=== PATIENT | male | born 1940 | race Two or more races ===

== ENCOUNTER 2021-05-29 11:26 | Inpatient (IN) | payer MEDICARE, MEDICAID ==
[~2021-05-29] VITALS: Ht 165.1 cm; Wt 78.6 kg
[2021-05-29] MEDS ORDERED: cloNIDine HCL 0.1 MG TAB PO ONE (11:45)
[2021-05-29 11:57] LABS: Basophils # (auto) 0 10 ^3/uL (0-0.2); Basophils % (auto) 0.8 % (0.0-2.0); Eosinophils # (auto) 0.1 10 ^3/uL (0-0.8); Eosinophils % (auto) 2.2 % (0.0-7.0); Hematocrit 39.2 % (41.0-53.0); Lymphocytes # (auto) 1.8 10 ^3/uL (0.4-5.4); Lymphocytes % (auto) 37.5 % (10.0-50.0); Mean Corpuscular Hemoglobin 27.6 pg (28.0-32.0); Mean Corpuscular Hgb Conc. 33.1 g/dL (32.0-36.0); Mean Corpuscular Volume 83.1 fL (80.0-100.0); Monocytes # (auto) 0.4 10 ^3/uL (0-1.3); Neutrophils # (auto) 2.5 10 ^3/uL (1.6-8.6); Neutrophils % (auto) 51.5 % (37.0-80.0); Red Blood Cells 4.72 10^6/uL (4.5-5.90); Red Cell Distribution Width 13.8 % (11.8-14.3); White Blood Cell 4.9 10^3/uL (4.4-10.8)
[2021-05-29 12:06] LABS: Albumin 3.6 g/dL (3.4-5.0); Anion Gap 7 (5-15); Blood Urea Nitrogen 19 mg/dL (7-18); Calcium 8.9 mg/dL (8.5-10.1); Carbon Dioxide 23 mmol/L (21-32); Chloride 107 mmol/L (98-107); Glucose 117 mg/dL (74-106); Lipase 137 U/L (73-393); Potassium 4.3 mmol/L (3.5-5.1); Sodium 137 mmol/L (136-145)
[2021-05-29 12:12] LABS: Alanine Aminotransferase 22 U/L (16-61); Alkaline Phosphatase 74 U/L (45-117); Aspartate Aminotransferase 13 U/L (15-37); BUN/Creatinine Ratio 16.4; Bilirubin, Total 0.5 mg/dL (0.2-1.0); GFR African American 78 mL/min; GFR Non-African American 65 mL/min; Total Protein 7.5 g/dL (6.4-8.2)
[2021-05-29] MEDS ORDERED: HYDROcodone-ACET 5/325MG TAB PO PRN (18:30)
[2021-05-29] MEDS ORDERED: ACETAMINOPHEN 500 MG TAB PO PRN (18:30)
[2021-05-29] MEDS ORDERED: MORPHINE SULFATE INJECTION 2 MG/ML SYRG IV PRN (18:30)
[2021-05-29] MEDS ORDERED: hydrALAZINE HCL 20 MG/ML VL IV PRN (18:30)
[2021-05-29] MEDS ORDERED: NITROGLYCERIN 0.4 MG SL TAB SL PRN (18:30)
[2021-05-29] MEDS: ATORVASTATIN 20 MG TAB PO SCH (21:02)
[2021-05-29] MEDS: METOPROLOL TARTRATE 25 MG TAB PO SCH (21:11)
[2021-05-29 21:41] LABS: CRP High Sensitivity 0.42 mg/dL (< 0.3)
[2021-05-30 05:55] LABS: Basophils # (auto) 0 10 ^3/uL (0-0.2); Basophils % (auto) 0.8 % (0.0-2.0); Eosinophils # (auto) 0.1 10 ^3/uL (0-0.8); Eosinophils % (auto) 2.3 % (0.0-7.0); Hematocrit 39.8 % (41.0-53.0); Hemoglobin 13.3 g/dL (13.5-17.5); Lymphocytes # (auto) 1.6 10 ^3/uL (0.4-5.4); Lymphocytes % (auto) 28.2 % (10.0-50.0); Mean Corpuscular Hemoglobin 27.8 pg (28.0-32.0); Mean Corpuscular Hgb Conc. 33.4 g/dL (32.0-36.0); Mean Corpuscular Volume 83.3 fL (80.0-100.0); Monocytes # (auto) 0.5 10 ^3/uL (0-1.3); Monocytes % (auto) 9.2 % (0.0-12.0); Neutrophils # (auto) 3.3 10 ^3/uL (1.6-8.6); Neutrophils % (auto) 59.5 % (37.0-80.0); Red Blood Cells 4.78 10^6/uL (4.5-5.90); Red Cell Distribution Width 14.1 % (11.8-14.3); White Blood Cell 5.6 10^3/uL (4.4-10.8)
[2021-05-30 06:18] LABS: Potassium 4.3 mmol/L (3.5-5.1)
[2021-05-30 06:27] LABS: INR 1.1 (0.9-1.15)
[2021-05-30] MEDS: ASPirin-EC 81 mg tab PO SCH (10:26)
[2021-05-30] MEDS: METOPROLOL TARTRATE 25 MG TAB PO SCH ×2 (10:27→21:47)
[2021-05-30] MEDS: LISINOPRIL 10 MG TAB PO SCH (10:27)
[2021-05-30 20:21] VITALS: BP 148/49
[2021-05-30] MEDS ORDERED: ATOR20TA PO (20:49)
[2021-05-30] MEDS ORDERED: ASPI-543 PO (20:49)
[2021-05-30] MEDS ORDERED: METO25TA93 PO (20:49)
[2021-05-30] MEDS ORDERED: OMEP20TA PO (20:49)
[2021-05-30] MEDS ORDERED: DOXA4TAB6 PO (20:49)
[2021-05-30] MEDS ORDERED: OXYB10TA14 PO (20:49)
[2021-05-30] MEDS ORDERED: METF-370 PO (20:49)
[2021-05-30] MEDS: ATORVASTATIN 20 MG TAB PO SCH (21:46)
[2021-05-30 22:00] VITALS: BP 154/73
[2021-05-31 05:00] VITALS: BP 123/65
[2021-05-31 09:00] VITALS: BP_SYST 133; BP_SYST 142; BP_SYST 144; BP_DIAS 66; BP_DIAS 71
[2021-05-31] MEDS: ASPirin-EC 81 mg tab PO SCH (09:31)
[2021-05-31] MEDS: LISINOPRIL 10 MG TAB PO SCH (09:32)
[2021-05-31] MEDS: METOPROLOL TARTRATE 25 MG TAB PO SCH ×2 (09:32→21:36)
[2021-05-31 09:56] LABS: Urine Bacteria NONE SEEN /hpf (None Seen); Urine Blood Negative /uL (Negative); Urine Mucus FEW (None Seen); Urine Specific Gravity 1.024 (1.001-1.035); Urine WBC 1 /hpf (0 - 3)
[2021-05-31 13:00] VITALS: BP 135/65
[2021-05-31 16:47] VITALS: BP 147/72
[2021-05-31] MEDS: ATORVASTATIN 20 MG TAB PO SCH (21:36)
[2021-05-31 22:00] VITALS: BP_SYST 135; BP_SYST 139; BP_SYST 150; BP_DIAS 77; BP_DIAS 78; BP_DIAS 83
[2021-06-01 05:00] VITALS: BP 129/57
[2021-06-01] MEDS ORDERED: ceFAZolin 1GM/50ML 100 ML IV ONE ×2 (07:10→10:47)
[2021-06-01] MEDS ORDERED: BUPIVACAINE W/ EPINEPH 0.25% INJ 50ML MDV ONE ×2 (07:21→11:12)
[2021-06-01 08:53] VITALS: BP 147/64
[2021-06-01] MEDS: ASPirin-EC 81 mg tab PO SCH (09:50)
[2021-06-01] MEDS: LISINOPRIL 10 MG TAB PO SCH (09:51)
[2021-06-01] MEDS: METOPROLOL TARTRATE 25 MG TAB PO SCH ×2 (09:51→21:01)
[2021-06-01] MEDS ORDERED: fentaNYL CITRATE 5 ML ONE (11:06)
[2021-06-01] MEDS ORDERED: MIDAZOLAM HCL 2MG/2ML 2ml VIAL (1mg/ml) ONE (11:06)
[2021-06-01] MEDS ORDERED: POVIDONE IODINE 10 % TOPICAL OINT 30GM TOP ONE (12:18)
[2021-06-01] MEDS ORDERED: ONDANSETRON HCL 4 MG/2 ML VIAL ONE (12:26)
[2021-06-01] MEDS ORDERED: SUGAMMADEX 200mg/2ml Vial (100MG/ML) IV ONE (12:42)
[2021-06-01] MEDS ORDERED: HYDROmorphone HCL 2 MG/ML VL IV PRN (13:15)
[2021-06-01] MEDS ORDERED: ONDANSETRON HCL 4 MG/2 ML VIAL IV PRN (13:15)
[2021-06-01 14:32] VITALS: BP 146/66
[2021-06-01 16:40] VITALS: BP 132/74
[2021-06-01] MEDS: MORPHINE SULFATE INJECTION 2 MG/ML SYRG IV PRN ×2 (17:01→22:46)
[2021-06-01] MEDS: ONDANSETRON HCL 4 MG/2 ML VIAL IV PRN ×2 (17:01→22:46)
[2021-06-01] MEDS: SOD CHL 0.45% WITH 20MEQ KCL 1,000 ML IV SCH ×2 (17:09→22:30)
[2021-06-01] MEDS ORDERED: ALUM & MAG HYDROX-SIMETH LIQ(MAALOX) 30 ML PO ONE (17:15)
[2021-06-01] MEDS: ATORVASTATIN 20 MG TAB PO SCH (21:01)
[2021-06-01 21:41] VITALS: BP 161/81
[2021-06-02] MEDS ORDERED: chlorproMAZINE HCL 25 MG TAB PO PRN (01:45)
[2021-06-02] MEDS: SOD CHL 0.45% WITH 20MEQ KCL 1,000 ML IV SCH (02:56)
[2021-06-02] MEDS ORDERED: ALUM & MAG HYDROX-SIMETH LIQ(MAALOX) 30 ML PO PRN (04:15)
[2021-06-02 05:30] VITALS: BP 134/66
[2021-06-02 05:58] LABS: Basophils # (auto) 0 10 ^3/uL (0-0.2); Basophils % (auto) 0.1 % (0.0-2.0); Eosinophils # (auto) 0 10 ^3/uL (0-0.8); Hematocrit 36.3 % (41.0-53.0); Hemoglobin 12.1 g/dL (13.5-17.5); Lymphocytes # (auto) 0.5 10 ^3/uL (0.4-5.4); Lymphocytes % (auto) 6.3 % (10.0-50.0); Mean Corpuscular Hemoglobin 27.7 pg (28.0-32.0); Mean Corpuscular Hgb Conc. 33.2 g/dL (32.0-36.0); Mean Corpuscular Volume 83.5 fL (80.0-100.0); Monocytes # (auto) 0.5 10 ^3/uL (0-1.3); Monocytes % (auto) 6.3 % (0.0-12.0); Neutrophils # (auto) 6.8 10 ^3/uL (1.6-8.6); Neutrophils % (auto) 87.3 % (37.0-80.0); Red Blood Cells 4.35 10^6/uL (4.5-5.90); White Blood Cell 7.8 10^3/uL (4.4-10.8)
[2021-06-02 08:30] VITALS: BP 130/74
[2021-06-02] MEDS ORDERED: cefTRIAXone 1GM/50ML D5W 50 ML IV SCH (09:00)
[2021-06-02] MEDS ORDERED: OXYBUTYNIN CHL 5 MG TAB PO SCH (10:00)
[2021-06-02] MEDS ORDERED: PANTOPRAZOLE 40 MG TAB PO SCH (10:00)
[2021-06-02] MEDS ORDERED: PANTOPRAZOLE 40 MG/10 ML VIAL INJ IV SCH (10:00)
[2021-06-02] MEDS: ASPirin-EC 81 mg tab PO SCH (10:23)
[2021-06-02] MEDS: METOPROLOL TARTRATE 25 MG TAB PO SCH (10:24)
[2021-06-02] MEDS: LISINOPRIL 10 MG TAB PO SCH (10:25)
[2021-06-02] MEDS ORDERED: BACLOFEN 10 MG TAB PO ONE (11:00)
[2021-06-02] MEDS ORDERED: ALUM & MAG HYDROX-SIMETH LIQ(MAALOX) 30 ML PO ONE (11:00)
[2021-06-02 13:30] VITALS: BP 136/84
[2021-06-02 14:23] VITALS: BP 136/84
[2021-06-02] MEDS ORDERED: PANT40T PO (17:40)
[2021-06-02] MEDS ORDERED: CEL100T PO (17:42)
[2021-06-02] MEDS ORDERED: DOXAZOSIN MESYL 2 MG TAB PO SCH (22:00)
== END 2021-06-02 15:50 | disposition home health service (06) | DRG 418 ==
LOC: EDBD 11:26 → ER 11:26 → TELE 18:19 → TELE-CENTR 05-30 19:01
PROVIDERS: ADMIT Nurse Practitioner Acute Care; ATTEND Internal Medicine
PROC: 0FT44ZZ Resection of Gallbladder, Percutaneous Endoscopic Approach (ICD-10-PCS; principal; 2021-06-01 11:10)
DX: K80.00 Calculus of gallbladder with acute cholecystitis without obstruction (principal); I24.9 Acute ischemic heart disease, unspecified; I16.0 Hypertensive urgency; R55 Syncope and collapse; I10 Essential (primary) hypertension; E66.9 Obesity, unspecified; Z68.28 Body mass index [BMI] 28.0-28.9, adult; E11.9 Type 2 diabetes mellitus without complications; E78.5 Hyperlipidemia, unspecified; Z20.822 Contact with and (suspected) exposure to COVID-19; E86.1 Hypovolemia; I25.10 Atherosclerotic heart disease of native coronary artery without angina pectoris; K21.9 Gastro-esophageal reflux disease without esophagitis; Z85.46 Personal history of malignant neoplasm of prostate; Z95.1 Presence of aortocoronary bypass graft
CPT/HCPCS: 36415; 70450; 70551; 71045; 74176; 76705; 78226; 80048; 80053; 80061; 81001; 82247; 83036; 83690; 84484; 85025; 85610; 85730; 86141; 86850; 86900; 86901; 87426; 93306; 93886; G0378; J0690; J0696; J2250; J2405; Q0161

== ENCOUNTER 2023-06-05 08:13 | Inpatient (IN) | payer MEDICARE, MEDICAID ==
[~2023-06-05] VITALS: Ht 154.9 cm; Wt 76.0 kg
[~2023-06-05 08:13] MED LIST: ASPI-543 PO; ATOR20TA PO; CEL100T PO; DOXA4TAB83 PO; METF-370 PO; METO25TA93 PO; OXYB10TA14 PO; PANT40T PO
[2023-06-05 08:35] LABS: Basophils # (auto) 0 10 ^3/uL (0-0.2); Basophils % (auto) 0.7 % (0.0-2.0); Eosinophils # (auto) 0.1 10 ^3/uL (0-0.8); Eosinophils % (auto) 1.4 % (0.0-7.0); Hematocrit 41.6 % (41.0-53.0); Hemoglobin 14.2 g/dL (13.5-17.5); Lymphocytes % (auto) 33.7 % (10.0-50.0); Mean Corpuscular Hemoglobin 29.7 pg (28.0-32.0); Mean Corpuscular Hgb Conc. 34.3 g/dL (32.0-36.0); Mean Corpuscular Volume 86.6 fL (80.0-100.0); Monocytes # (auto) 0.4 10 ^3/uL (0-1.3); Monocytes % (auto) 6.5 % (0.0-12.0); Neutrophils # (auto) 3.4 10 ^3/uL (1.6-8.6); Neutrophils % (auto) 57.7 % (37.0-80.0); Nucleated Red Blood Cells % 0.1 %; Red Cell Distribution Width 13.7 % (11.8-14.3)
[2023-06-05 08:40] VITALS: PULSE 79; RESP 18; O2SAT 97
[2023-06-05] MEDS ORDERED: ASPirin-EC 325mg tab PO ONE (08:45)
[2023-06-05] MEDS ORDERED: NITROGLYCERIN 2% OINT 1GM PKG TD ONE (08:45)
[2023-06-05 08:47] LABS: INR 1.1 (0.9-1.15); Partial Thromboplastin Time 31.3 SEC (24.5-34.5); Prothrombin Time 11.5 sec (9.3-11.8)
[2023-06-05] MEDS ORDERED: METOPROLOL TARTRATE 50 MG TAB PO ONE (09:00)
[2023-06-05 09:07] LABS: Alanine Aminotransferase 21 U/L (7-40); Albumin 4.8 g/dL (3.2-4.8); Alkaline Phosphatase 86 U/L (46-116); Anion Gap 9 (5-15); Aspartate Aminotransferase 16 U/L (13-40); BUN/Creatinine Ratio 11.8 (10.0-20.0); Bilirubin, Total 0.9 mg/dL (0.2-1.0); Blood Urea Nitrogen 13 mg/dL (9-23); Calcium 9.6 mg/dL (8.5-10.1); Carbon Dioxide 26 mmol/L (20-30); Chloride 106 mmol/L (98-107); Glucose 134 mg/dL (74-106); Potassium 3.9 mmol/L (3.5-5.1); Sodium 141 mmol/L (136-145); Total Protein 7.5 g/dL (5.7-8.2)
[2023-06-05 09:51] LABS: Urine Bacteria NONE SEEN /hpf (None Seen); Urine Blood Negative /uL (Negative); Urine Clarity Clear (Clear); Urine Color Colorless (Yellow); Urine Protein, UAD 1+ (Negative); Urine Urobilinogen Normal (Negative); Urine WBC <1 /hpf (0 - 3)
[2023-06-05 11:02] LABS: Lipase 44 U/L (12-53); Magnesium 1.8 mg/dL (1.6-2.6)
[2023-06-05] MEDS ORDERED: LISINOPRIL 5 MG TAB PO SCH (11:15)
[2023-06-05] MEDS ORDERED: MORPHINE SULFATE INJ 2 MG/ml SYRG IV PRN ×2 (11:15)
[2023-06-05] MEDS ORDERED: DOCUSATE SOD 100 MG CAP PO PRN (11:15)
[2023-06-05] MEDS ORDERED: NITROGLYCERIN 0.4 MG SL TAB SL PRN (11:15)
[2023-06-05 12:02] LABS: Amphetamine Screen, Urine Neg (NEGATIVE)
[2023-06-05 12:03] LABS: Barbiturate Scree,Urine Neg (NEGATIVE); Benzodiazephine Screen, Urine Neg (NEGATIVE); Cannabinoid Screen, Urine Neg (NEGATIVE); Cocaine Screen, Urine Neg (NEGATIVE); Opiate Scree,Urine Neg (NEGATIVE); Phencyclidine Screen, Urine Neg (NEGATIVE)
[2023-06-05 12:09] LABS: Triglycerides 108 mg/dL (< 150)
[2023-06-05 12:10] LABS: LDL Cholesterol 53 mg/dL (< 100)
[2023-06-05 12:11] LABS: Cholesterol 105 mg/dL (< 200); HDL Cholesterol 33 mg/dL (40-59)
[2023-06-05] MEDS ORDERED: ENALAPRIL MALEATE 2.5 MG TAB PO ONE (13:15)
[2023-06-05] MEDS ORDERED: DEXTROSE (50%) 50ML SYRG IV PRN (16:15)
[2023-06-05] MEDS: PANTOPRAZOLE 40 MG TAB PO SCH (16:44)
[2023-06-05] MEDS: FERROUS SULFATE 325mg EC TAB PO SCH (16:44)
[2023-06-05] MEDS: SODIUM CHLOR 0.9% PF (SALINE LOCK) 10ML VIAL/SYR IV SCH ×2 (16:44→20:42)
[2023-06-05] MEDS: OXYBUTYNIN CHL 5 MG TAB PO SCH (16:44)
[2023-06-05] MEDS: DOXAZOSIN MESYL 2 MG TAB PO SCH (17:07)
[2023-06-05] MEDS: ACCU-CHEK COMFORT CURVE STRIP VI SCH ×2 (18:00→22:13)
[2023-06-05] MEDS: InsuLIN REG 1unit/0.01ml Soln (100units/ml) SC SCH ×2 (18:00→21:20)
[2023-06-05 18:36] VITALS: BP 156/72; PULSE 60; PULSE 74; RESP 16; O2SAT 96
[2023-06-05] MEDS ORDERED: ATOR20TA50 PO (19:36)
[2023-06-05] MEDS ORDERED: FLUT50SP NAS (19:36)
[2023-06-05] MEDS ORDERED: OXYB5TAB10 PO (19:36)
[2023-06-05] MEDS ORDERED: OMEP1CAP70 PO (19:36)
[2023-06-05] MEDS ORDERED: METO-289 PO (19:47)
[2023-06-05] MEDS ORDERED: GLIP2.5T9 PO (19:51)
[2023-06-05 20:00] VITALS: PULSE 1; PULSE 57; RESP 16; O2SAT 57
[2023-06-05 21:51] VITALS: BP 148/63; PULSE 57; RESP 16; TEMP 98; O2SAT 97
[2023-06-05] MEDS ORDERED: ATORVASTATIN 20 MG TAB PO SCH (22:00)
[2023-06-05] MEDS: ENALAPRIL MALEATE 2.5 MG TAB PO SCH (22:04)
[2023-06-05] MEDS: ENOXAPARIN SOD 80 MG/0.8ML SYRINGE SC SCH (22:13)
[2023-06-06] MEDS ORDERED: NITR0.4S29 SL (03:21)
[2023-06-06] MEDS ORDERED: CALC500C3 PO (03:22)
[2023-06-06] MEDS ORDERED: FERR325T24 PO (03:33)
[2023-06-06 04:58] VITALS: BP 130/65; PULSE 59; RESP 16; TEMP 98; O2SAT 97
[2023-06-06] MEDS: ACCU-CHEK COMFORT CURVE STRIP VI SCH ×2 (05:33→12:05)
[2023-06-06] MEDS: SODIUM CHLOR 0.9% PF (SALINE LOCK) 10ML VIAL/SYR IV SCH ×2 (05:33→14:09)
[2023-06-06] MEDS: InsuLIN REG 1unit/0.01ml Soln (100units/ml) SC SCH ×2 (05:33→12:03)
[2023-06-06 05:56] LABS: Basophils # (auto) 0 10 ^3/uL (0-0.2); Basophils % (auto) 0.7 % (0.0-2.0); Eosinophils # (auto) 0.1 10 ^3/uL (0-0.8); Eosinophils % (auto) 2.3 % (0.0-7.0); Hematocrit 39.3 % (41.0-53.0); Hemoglobin 13.3 g/dL (13.5-17.5); Lymphocytes # (auto) 1.6 10 ^3/uL (0.4-5.4); Lymphocytes % (auto) 30.7 % (10.0-50.0); Mean Corpuscular Hemoglobin 29.8 pg (28.0-32.0); Mean Corpuscular Hgb Conc. 33.7 g/dL (32.0-36.0); Mean Corpuscular Volume 88.4 fL (80.0-100.0); Monocytes # (auto) 0.4 10 ^3/uL (0-1.3); Monocytes % (auto) 8.5 % (0.0-12.0); Neutrophils % (auto) 57.8 % (37.0-80.0); Red Blood Cells 4.45 10^6/uL (4.5-5.90); Red Cell Distribution Width 13.6 % (11.8-14.3); White Blood Cell 5.2 10^3/uL (4.4-10.8)
[2023-06-06 06:07] LABS: Alanine Aminotransferase 14 U/L (7-40); Alkaline Phosphatase 74 U/L (46-116); Anion Gap 8 (5-15); Aspartate Aminotransferase 15 U/L (13-40); Blood Urea Nitrogen 11 mg/dL (9-23); Calcium 9.1 mg/dL (8.5-10.1); Carbon Dioxide 25 mmol/L (20-30); Chloride 108 mmol/L (98-107); Glucose 92 mg/dL (74-106); LDL Cholesterol 51 mg/dL (< 100); Potassium 3.9 mmol/L (3.5-5.1); Sodium 141 mmol/L (136-145); Triglycerides 126 mg/dL (< 150)
[2023-06-06 06:08] LABS: Albumin 4.1 g/dL (3.2-4.8); Cholesterol 100 mg/dL (< 200); HDL Cholesterol 28 mg/dL (40-59); Total Protein 6.6 g/dL (5.7-8.2)
[2023-06-06 08:00] VITALS: PULSE 70; PULSE 72; RESP 17; O2SAT 97
[2023-06-06 08:38] VITALS: BP 134/62; PULSE 72; RESP 17; TEMP 98.3; O2SAT 97
[2023-06-06] MEDS: ENALAPRIL MALEATE 2.5 MG TAB PO SCH (10:51)
[2023-06-06] MEDS: PANTOPRAZOLE 40 MG TAB PO SCH (10:51)
[2023-06-06] MEDS: ENOXAPARIN SOD 80 MG/0.8ML SYRINGE SC SCH (10:53)
[2023-06-06] MEDS: DOXAZOSIN MESYL 2 MG TAB PO SCH (10:53)
[2023-06-06] MEDS: OXYBUTYNIN CHL 5 MG TAB PO SCH (10:53)
[2023-06-06] MEDS: FERROUS SULFATE 325mg EC TAB PO SCH (10:53)
[2023-06-06] MEDS ORDERED: ERGOCALCIFEROL 50,000 UNIT(1.25MG) CAP PO SCH (11:00)
[2023-06-06] MEDS ORDERED: LISI20TA56 PO (11:21)
[2023-06-06] MEDS ORDERED: METO25TA36 PO (11:21)
[2023-06-06 12:44] VITALS: BP 144/66; PULSE 71; RESP 17; TEMP 99.2; O2SAT 99
[2023-06-06 16:05] VITALS: BP 134/61; PULSE 89; TEMP 37.3; O2SAT 97
[2023-06-06] MEDS ORDERED: METOPROLOL TARTRATE 25 MG TAB PO SCH (22:00)
== END 2023-06-06 17:26 | disposition home or self-care (01) | DRG 303 ==
LOC: ER 08:13 → TELE 11:18 → TELE-WESTW 17:33
PROVIDERS: ADMIT Internal Medicine Geriatric Medicine; ATTEND Internal Medicine Geriatric Medicine
DX: I25.119 Atherosclerotic heart disease of native coronary artery with unspecified angina pectoris (principal); I16.0 Hypertensive urgency; I44.0 Atrioventricular block, first degree; I10 Essential (primary) hypertension; E11.9 Type 2 diabetes mellitus without complications; E78.5 Hyperlipidemia, unspecified; R00.2 Palpitations; Z95.1 Presence of aortocoronary bypass graft
CPT/HCPCS: 36415; 71045; 74176; 80053; 80061; 80307; 81001; 82248; 82306; 82607; 82962; 83036; 83690; 83735; 84443; 84484; 85025; 85610; 85730; 93005; 93306; G0378; J1815

== ENCOUNTER 2025-06-02 02:30 | Inpatient (IN) | payer MEDICARE, MEDICAID ==
[2025-06-02] VITALS (12 sets, daily range): BP systolic 132–176; BP diastolic 64–89; PULSE 60–94; RESP 12–20; TEMP 96.4–99; O2SAT 95–99
[~2025-06-02] VITALS: Ht 154.9 cm; Wt 74.7 kg
[~2025-06-02 02:30] MED LIST changes: +CALC500C3 PO; -CEL100T PO; +FERR325T24 PO; +FLUT50SP NAS; +GLIP2.5T9 PO; +LISI20TA56 PO; -METF-370 PO; +METO25TA36 PO; -METO25TA93 PO; +NITR0.4S29 SL; +OMEP1CAP70 PO; -OXYB10TA14 PO; +OXYB5TAB14 PO; -PANT40T PO
--- NOTE | 2025-06-02 02:46 | ED.PDOC ---
HPI Comments 84-year-old male came to ER via EMS for chest pains. Patient has an extensive cardiac history, hypertension, diabetes, TN, status post CABG and pacemaker insertion. 3 hours prior to arrival, he developed sudden onset midsternal chest pains, dull, pressure, constant radiating to both arms and neck area, 8/10 intensity. 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 Allergies: Coded Allergies: NO KNOWN ALLERGIES (Unverified , 05/29/21) Home Meds Active Scripts Lisinopril (Lisinopril) 20 Mg Tab, 1 TAB PO DAILY, #30 TAB 5 Refills Prov:MARIE JULES MD 06/06/23 Metoprolol Succinate (Toprol Xl) 25 Mg Tab, 1 TAB PO DAILY, #30 TAB 5 Refills Prov:MARIE JULES MD 06/06/23 Reported Medications Ferrous Sulfate (Ferrous Sulfate) 325 Mg Tab, 325 MG PO BIDWM PRN for iron defin for 30 Days, MG 06/06/23 Calcium Carbonate (Tums) 500 Mg Chw, 500 MG PO PRN for FOR STOMACH DISTRESS, TAB.CHEW 06/06/23 Nitroglycerin (NTROSTAT SUBLINGUAL) 0.4 Mg Sl, 0.4 MG SL PRN, TAB *MAY REPEAT EVERY 5 MINUTES X 3 TOTAL IF NO RELIEF, INITIATE ANALGESIC THERAPY. NOTIFY PHYSICIAN *Do not crush. 06/06/23 Glipizide (Glipizide Er) 2.5 Mg Tab, 1 TAB PO DAILY 06/05/23 Oxybutynin Chloride (Oxybutynin Chloride) 5 Mg Tab, 1 TAB PO DAILY 06/05/23 Omeprazole (Omeprazole Dr) 20 Mg Cap, 1 CAP PO DAILY 06/05/23 Fluticasone Propionate (Nasal) (Fluticasone Propionate) 50 Mcg/Act Spr, 1 SPRAY JULIA DAILY 06/05/23 Doxazosin Mesylate (Doxazosin Mesylate) 4 Mg Tab, 4 MG PO HS for 30 Days, MG 05/30/21 Aspirin (Aspir-Low) 81 Mg Tab, 81 MG PO DAILY for 30 Days, MG 05/30/21 Atorvastatin Calcium (Lipitor) 20 Mg Tab, 1 TAB PO DAILY, #90 TAB 1 Refill 05/30/21 Information Source: Patient Mode of Arrival: Wheelchair Severity: Moderate Timing: Hours Duration: Since onset Prehospital treatment: ASA, NTG Location: Substernal Radiation: Neck, Arm (R), Arm (L) Quality: Pressure Onset: At Rest, With Light Exertion Past Medical History PAST MEDICAL HISTORY: Asthma, CAD, DM, High Lipids, HTN, TN, Denies Surgical History: CABG, Pacemaker Family History Family History: Reviewed,noncontributory to illness Social History Smoker: Non-Smoker Alcohol: Denies ETOH Use Drugs: Denies Drug Use Lives In: Home Constitutional: denies: chills, diaphoresis, fatigue, fever, malaise, sweats, weakness, others EENTM: denies: blurred vision, double vision, ear bleeding, ear discharge, ear drainage, ear pain, ear ringing, eye pain, eye redness, hearing loss, mouth pain, mouth swelling, nasal discharge, nose bleeding, nose congestion, nose pain, photophobia, tearing, throat pain, throat swelling, voice changes, others Respiratory: denies: cough, hemoptysis, orthopnea, SOB at rest, shortness of breath, SOB with excertion, stridor, wheezing, others Cardiovascular: reports: chest pain; denies: dizzy spells, diaphoresis, Dyspnea on exertion, edema, irregular heart beat, left arm pain, lightheadedness, palpitations, PND, syncope, others Gastrointestinal: denies: abdomen distended, abdominal pain, blood streaked bowels, constipated, diarrhea, dysphagia, difficulty swallowing, hematemesis, melena, nausea, poor appetite, poor fluid intake, rectal bleeding, rectal pain, vomiting, others Genitourinary: denies: burning, dysuria, flank pain, frequency, hematuria, incontinence, penile discharge, penile sore, pain, testicle pain, testicle swelling, urgency, others Neurological: denies: dizziness, fainting, headache, left sided numbness, left sided weakness, numbness, paresthesia, pre-existing deficit, right sided numbness, right sided weakness, seizure, speech problems, tingling, tremors, weakness, others Musculoskeletal: denies: back pain, gout, joint pain, joint swelling, muscle pain, muscle stiffness, neck pain, others Integumetry: denies: bruises, change in color, change in hair/nails, dryness, laceration, lesions, lumps, rash, wounds, others Allergic/Immunocompromised: denies: Difficulty Healing, Frequent Infections, Hives, Itching, others Hematologic/Lymphatic: denies: anemia, blood clots, easy bleeding, easy bruising, swollen glands, others Endocrine: denies: excessive hunger, excessive sweating, excessive thirst, excessive urination, flushing, intolerance to cold, intolerance to heat, unexplained weight gain, unexplained weight loss, others Psychiatric: denies: anxiety, bipolar disorder, depression, hopeless, panic disorder, schizophrenia, sleepless, suicidal, others Physical Exam General Appearance: No Apparent Distress, Normal HEENT: Normal ENT Inspection, Pharynx Normal, TMs Normal Neck: Full Range of Motion, Non-Tender, Normal, Normal Inspection Respiratory: Chest Non-Tender, Lungs Clear, No Accessory Muscle Use, No Respiratory Distress, Normal Breath Sounds Cardiovascular: No Edema, No JVD, No Murmur, No Gallop, Normal Peripheral Pulses, Regular Rate/Rhythm Breast Exam: Deferred Gastrointestinal: No Organomegaly, Non Tender, No Pulsatile Mass, Normal Bowel Sounds, Soft Genitalia: Deferred Pelvic: Deferred Rectal: Deferred Extremities: No calf tenderness, Normal capillary refill, Normal inspection, Normal range of motion, Non-tender, No pedal edema Musculoskeletal : Apperance: Normal 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 Was a procedure done?: No CP Differential Dx Differential Diagnosis: Angina, Anxiety / Panic Attack Differential Diagnosis: Angina, Chest Wall Pain, Costochondritis, Esophageal reflux/spasm, Gastritis, Myocardial Infarction, Pneumonia X-Ray, Labs, Meds, VS Vital Signs Date Time Temp Pulse Resp B/P (MAP) Pulse Ox O2 Delivery O2 Flow Rate FiO2 06/02/25 03:35 82 06/02/25 03:21 88 18 97 Room Air* 0 21 06/02/25 03:21 98.1 78 18 152/76 (101) 97 98.1 06/02/25 02:46 97 06/02/25 02:44 97.6 101 17 161/96 96 97.6 06/02/25 02:32 97 Lab Test 06/02/25 03:28 06/02/25 02:40 Range/Units Troponin I High Sensitivity 26 18 </=54 ng/L White Blood Count 5.5 4.4-10.8 10^3/uL Red Blood Count 4.54 4.5-5.90 10^6/uL Hemoglobin 13.1 L 13.5-17.5 g/dL Hematocrit 37.6 L 41.0-53.0 % Mean Corpuscular Volume 83.0 80.0-100.0 fL Mean Corpuscular Hemoglobin 28.8 28.0-32.0 pg Mean Corpuscular Hemoglobin Concent 34.7 32.0-36.0 g/dL Red Cell Distribution Width 15.8 H 11.8-14.3 % Platelet Count 187 140-450 10^3/uL Mean Platelet Volume 7.1 6.9-10.8 fL Neutrophils (%) (Auto) 56.1 37.0-80.0 % Lymphocytes (%) (Auto) 34.1 10.0-50.0 % Monocytes (%) (Auto) 7.3 0.0-12.0 % Eosinophils (%) (Auto) 1.8 0.0-7.0 % Basophils (%) (Auto) 0.7 0.0-2.0 % Neutrophils # (Auto) 3.1 1.6-8.6 10 ^3/uL Lymphocytes # (Auto) 1.9 0.4-5.4 10 ^3/uL Monocytes # (Auto) 0.4 0-1.3 10 ^3/uL Eosinophils # (Auto) 0.1 0-0.8 10 ^3/uL Basophils # (Auto) 0 0-0.2 10 ^3/uL Nucleated Red Blood Cells 0.2 % Prothrombin Time 10.9 9.3-11.8 sec Prothrombin Time INR 1.03 0.9-1.15 Activated Partial Thromboplast Time 28.9 24.5-34.5 SEC Sodium Level 140 136-145 mmol/L Potassium Level 4.6 3.5-5.1 mmol/L Chloride Level 105 98-107 mmol/L Carbon Dioxide Level 23 20-31 mmol/L Anion Gap 12 5-15 Blood Urea Nitrogen 17 9-23 mg/dL Creatinine 1.08 0.700-1.30 mg/dL Glomerular Filtration Rate Calc 68 >90 mL/min BUN/Creatinine Ratio 15.7 10.0-20.0 Serum Glucose 130 H 74-106 mg/dL Calcium Level 9.2 8.7-10.4 mg/dL Magnesium Level 1.8 1.6-2.6 mg/dL Total Bilirubin 0.4 0.2-1.0 mg/dL Aspartate Amino Transferase (AST) 21 13-40 U/L Alanine Aminotransferase (ALT) 20 7-40 U/L Alkaline Phosphatase 103 46-116 U/L B-Type Natriuretic Peptide 193.82 0-100 pg/mL Total Protein 7.4 5.7-8.2 g/dL Albumin 4.4 3.2-4.8 g/dL Time of 1ST Reevaluation: 02:39 Reevaluation 1ST: Unchanged Patient Education/Counseling: Diagnosis, Treatment Family Education/Counseling: No Family Present SEPSIS Sepsis Screen Physician Orders Electrocardigram (06/02/25 05:36) Chest Portable (06/02/25 02:38) Troponin-I Hs (06/02/25 05:38) Vital Signs Date Time Temp Pulse Resp B/P (MAP) Pulse Ox O2 Delivery O2 Flow Rate FiO2 06/02/25 03:35 82 06/02/25 03:21 88 18 97 Room Air* 0 21 06/02/25 03:21 98.1 78 18 152/76 (101) 97 98.1 06/02/25 02:46 97 06/02/25 02:44 97.6 101 17 161/96 96 97.6 06/02/25 02:32 97 Laboratory Tests Test 06/02/25 02:40 White Blood Count 5.5 10^3/uL (4.4-10.8) Departure 1 Departure Time of Disposition: 05:35 Impression: Primary Impression: Acute chest pain Additional Impression: Acute coronary syndrome Disposition: ADMITTED INPATIENT Admit to: Tele Condition: Guarded Discharged With: Self Comments 84-year-old male with extensive cardiac history now with chest pain. Patient initial troponin is normal. Patient was given aspirin. Patient will need to be admitted for further cardiac workup and supportive care. Critical Care Note Critical Care Time?: Yes (35 min-critical care time only) Critical care comment: Chest pains Total critical care time: Approximately 36 minutes Due to a high probability of clinically significant, life threatening deterioration, the patient required my highest level of preparedness to intervene emergently and I personally spent this critical care time directly and personally managing the patient. This critical care time included obtaining a history; examining the patient; pulse oximetry; ordering and review of studies; arranging urgent treatment with development of a management plan; evaluation of patient's response to treatment; frequent reassessment; and, discussions with other providers. This critical care time was performed to assess and manage the high probability of imminent, life-threatening deterioration that could result in multi-organ failure. It was exclusive of separately billable procedures and treating other patients. Stability Stability form required: No Heart Score Heart Score: Heart Score Response (Comments) Value History Moderate Suspicious 1 EKG Repolarization Disturb 1 Age >65 2 Risk Factors >3 or Hx ASHD 2 Troponin Normal limit 0 Total 6 I personally scribed for BRENNAN DIAZ MD ([email or web address]) on 06/02/25 at 02:46. Electronically submitted by Delmar Viramontes ([email or web address]). I personally scribed for BRENNAN DIAZ MD ([email or web address]) on 06/02/25 at 02:49. Electronically submitted by Delmar Viramontes ([email or web address]). BRENNAN DIAZ MD Jun 02, 2025 02:46
[2025-06-02 02:54] LABS: Hematocrit 37.6 % (41.0-53.0); Hemoglobin 13.1 g/dL (13.5-17.5); Mean Corpuscular Hemoglobin 28.8 pg (28.0-32.0); Mean Corpuscular Volume 83.0 fL (80.0-100.0); Nucleated Red Blood Cells % 0.2 %
--- NOTE | 2025-06-02 03:11 | ECG ---
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
--- NOTE | 2025-06-02 03:13 | DVH ---
CHEST RADIOGRAPH Indication: chest pain Technique: Single frontal view of the chest was obtained COMPARISON: XY CHEST PORTABLE on DOS: 06/05/23, CHEST PORTABLE on DOS: 05/30/21 FINDINGS: Lines and Tubes: None. Left anterior chest wall dual lead cardiac pacing device. Lungs: Clear Pleura: No effusion. No pneumothorax. Cardiomediastinal contours: Cardiomegaly status post median sternotomy. Bones: Unremarkable IMPRESSION: 1. Cardiomegaly.
[2025-06-02 03:36] LABS: Alanine Aminotransferase 20 U/L (7-40); Alkaline Phosphatase 103 U/L (46-116); Anion Gap 12 (5-15); BUN/Creatinine Ratio 15.7 (10.0-20.0); Blood Urea Nitrogen 17 mg/dL (9-23); Calcium 9.2 mg/dL (8.7-10.4); Carbon Dioxide 23 mmol/L (20-31); Chloride 105 mmol/L (98-107); Magnesium 1.8 mg/dL (1.6-2.6); Potassium 4.6 mmol/L (3.5-5.1); Sodium 140 mmol/L (136-145); Total Protein 7.4 g/dL (5.7-8.2)
[2025-06-02 03:37] LABS: Albumin 4.4 g/dL (3.2-4.8); Bilirubin, Total 0.4 mg/dL (0.2-1.0); INR 1.03 (0.9-1.15); Partial Thromboplastin Time 28.9 SEC (24.5-34.5); Prothrombin Time 10.9 sec (9.3-11.8)
--- NOTE | 2025-06-02 03:38 | ECG ---
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
[2025-06-02 03:51] LABS: Glucose 130 mg/dL (74-106)
--- NOTE | 2025-06-02 05:36 | ECG ---
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
[2025-06-02] MEDS: ASPirin-EC 325mg tab PO ONE (06:49)
[2025-06-02] MEDS ORDERED: ISOS1TAB28 PO (07:44)
[2025-06-02] MEDS ORDERED: ACETAMINOPHEN 325 MG TAB PO PRN (07:45)
[2025-06-02] MEDS ORDERED: MORPHINE SULFATE INJ 2 MG/ml SYRG IV PRN (07:45)
[2025-06-02] MEDS ORDERED: DEXTROSE (50%) 50ML SYRG IV PRN (07:45)
[2025-06-02] MEDS ORDERED: NITROGLYCERIN 0.4 MG SL TAB SL PRN ×2 (07:45)
[2025-06-02] MEDS ORDERED: ALBUTEROL SULF 2.5 MG/0.5ML(0.5%) NEB SOLN NEB PRN ×2 (07:45→11:15)
[2025-06-02] MEDS ORDERED: IPRATROPIUM BROM 0.5 MG/2.5ML INH SOL NEB PRN (07:45)
[2025-06-02] MEDS ORDERED: MORPHINE SULFATE 4 MG/ML SYR/VIAL IV PRN (07:45)
[2025-06-02] MEDS ORDERED: PATIENTS OWN MEDICATION (Ferrous Sulfate 325 MG) PO PRN (07:45)
[2025-06-02] MEDS ORDERED: ONDANSETRON HCL 4 MG/2 ML VIAL IV PRN (07:45)
--- NOTE | 2025-06-02 07:45 | DVHHP2 ---
History of Present Illness Reason for Visit: Chest pain History of Present Illness David Trujillo is an 84-year-old male with past medical history of hypertension, diabetes, KS, CABG, pacemaker, tobacco use, urinary incontinence, cholecystectomy, seasonal allergies, gastritis, asthma, CAD, and hyperlipidemia who presents to the ED with chest pain that started 3 hours prior to arrival. Patient reports that the pain was 8/10 midsternal, dull pressure-like and constant radiating to both arms and neck. Patient reports that he self- medicated with aspirin nitroglycerin however chest pain was still present. Upon examination patient states that his pain is currently at 0. He does however state that if he does move or showers the pain is worse. He reports that lying still makes the pain better. Patient also reports that he had a pacemaker placed 6 weeks ago over at [facility] by Dr. Queen. Patient denies any recent trauma or injury, recent sick contacts, recent ingestion of spoiled food, recent travels, shortness of breath, fever, chills, lightheadedness, weakness, dizziness, abdominal pain, nausea, vomiting, diarrhea, or urinary symptoms. Patient also reports that he ambulates without any DMEs. Cardiovascular: CAD, HTN, KS, hyperipidemia Pulmonary: Asthma GI: Gastritis Endocrine: Diabetes Past Medical History Urinary incontinence Seasonal allergies Past Surgical History: Cholecystectomy, CABG, Other (Pacemaker) Smoke: Quit ALCOHOL: none Drugs: None Lives: with Family Domestic Violence: Neg Review of Systems Cardiovascular: Chest Pain Allergies: Coded Allergies: NO KNOWN ALLERGIES (Unverified , 05/29/21) Exam Vital Signs Vital Signs Date Time Temp Pulse Resp B/P (MAP) Pulse Ox O2 Delivery O2 Flow Rate FiO2 06/02/25 06:48 79 06/02/25 05:38 98.1 20 150/87 (108) 97 98.1 06/02/25 03:21 Room Air* 0 21 General Appearance: Alert, Oriented X3, Cooperative, No acute distress HEENT: Atraumatic, PERRLA, EOMI, Mucous membr. moist/pink Respiratory: Clear to auscultation, Normal air movement Cardiovascular: Normal S1, Normal S2, No murmurs Abdominal: Normal bowel sounds, Soft Extremities: Normal pulses Skin: No significant lesion Neuro: Normal speech, Strength at 5/5 X4 ext, Normal tone, Sensation intact Psych/Mental Status: Mental status NL, Mood NL Labs/Xrays Labs Test 06/02/25 05:38 06/02/25 02:40 Range/Units Troponin I High Sensitivity 177 *H </=54 ng/L White Blood Count 5.5 4.4-10.8 10^3/uL Red Blood Count 4.54 4.5-5.90 10^6/uL Hemoglobin 13.1 L 13.5-17.5 g/dL Hematocrit 37.6 L 41.0-53.0 % Mean Corpuscular Volume 83.0 80.0-100.0 fL Mean Corpuscular Hemoglobin 28.8 28.0-32.0 pg Mean Corpuscular Hemoglobin Concent 34.7 32.0-36.0 g/dL Red Cell Distribution Width 15.8 H 11.8-14.3 % Platelet Count 187 140-450 10^3/uL Mean Platelet Volume 7.1 6.9-10.8 fL Neutrophils (%) (Auto) 56.1 37.0-80.0 % Lymphocytes (%) (Auto) 34.1 10.0-50.0 % Monocytes (%) (Auto) 7.3 0.0-12.0 % Eosinophils (%) (Auto) 1.8 0.0-7.0 % Basophils (%) (Auto) 0.7 0.0-2.0 % Neutrophils # (Auto) 3.1 1.6-8.6 10 ^3/uL Lymphocytes # (Auto) 1.9 0.4-5.4 10 ^3/uL Monocytes # (Auto) 0.4 0-1.3 10 ^3/uL Eosinophils # (Auto) 0.1 0-0.8 10 ^3/uL Basophils # (Auto) 0 0-0.2 10 ^3/uL Nucleated Red Blood Cells 0.2 % Prothrombin Time 10.9 9.3-11.8 sec Prothrombin Time INR 1.03 0.9-1.15 Activated Partial Thromboplast Time 28.9 24.5-34.5 SEC Sodium Level 140 136-145 mmol/L Potassium Level 4.6 3.5-5.1 mmol/L Chloride Level 105 98-107 mmol/L Carbon Dioxide Level 23 20-31 mmol/L Anion Gap 12 5-15 Blood Urea Nitrogen 17 9-23 mg/dL Creatinine 1.08 0.700-1.30 mg/dL Glomerular Filtration Rate Calc 68 >90 mL/min BUN/Creatinine Ratio 15.7 10.0-20.0 Serum Glucose 130 H 74-106 mg/dL Calcium Level 9.2 8.7-10.4 mg/dL Magnesium Level 1.8 1.6-2.6 mg/dL Total Bilirubin 0.4 0.2-1.0 mg/dL Aspartate Amino Transferase (AST) 21 13-40 U/L Alanine Aminotransferase (ALT) 20 7-40 U/L Alkaline Phosphatase 103 46-116 U/L B-Type Natriuretic Peptide 193.82 0-100 pg/mL Total Protein 7.4 5.7-8.2 g/dL Albumin 4.4 3.2-4.8 g/dL CHEST RADIOGRAPH Indication: chest pain Technique: Single frontal view of the chest was obtained COMPARISON: XY CHEST PORTABLE on DOS: 06/05/23, CHEST PORTABLE on DOS: 05/30/21 FINDINGS: Lines and Tubes: None. Left anterior chest wall dual lead cardiac pacing device. Lungs: Clear Pleura: No effusion. No pneumothorax. Cardiomediastinal contours: Cardiomegaly status post median sternotomy. Bones: Unremarkable IMPRESSION: 1. Cardiomegaly. SEPSIS Sepsis Screen Date sepsis recognized/suspect: Jun 02, 2025 Time Sepsis recognized/suspect: 325 Recent Procedure: No On Antibiotic Therapy: No Respiratory Rate >20: No Heart Rate >90: No Temp<36 C (96.8 F) or >38.3 C: No SBP <90 or MAP <65 mmHG: No New Acute Mental Status Change: No Is the patient on CPAP, BIPAP,: No Physician Orders Chest Portable (06/02/25 02:38) Troponin-I Hs (06/02/25 06:47) Troponin-I Hs (06/02/25 09:47) Troponin-I Hs (06/02/25 07:47) Vital Signs Date Time Temp Pulse Resp B/P (MAP) Pulse Ox O2 Delivery O2 Flow Rate FiO2 06/02/25 06:48 79 06/02/25 05:38 98.1 88 20 150/87 (108) 97 98.1 06/02/25 05:33 82 06/02/25 03:35 82 06/02/25 03:21 88 18 97 Room Air* 0 21 06/02/25 03:21 98.1 78 18 152/76 (101) 97 98.1 06/02/25 02:46 97 06/02/25 02:44 97.6 101 17 161/96 96 97.6 06/02/25 02:32 97 Laboratory Tests Test 06/02/25 02:40 White Blood Count 5.5 10^3/uL (4.4-10.8) Medications Medications Dose Ordered Sig/Mackenzie Route Start Time Stop Time Status Last Admin Dose Admin Aspirin 325 mg ONCE ONCE PO 06/02/25 06:45 06/02/25 06:47 DC 06/02/25 06:49 325 MG Assessment/Plan Assessment/Plan Assessment NSTEMI likely type 2 cardiomegaly History of hypertension History of diabetes History of KS History of CABG History of pacemaker 6 weeks ago at [facility] by Dr. Queen History of tobacco use History of urinary incontinence History of cholecystectomy History of seasonal allergies History of gastritis History of asthma History of CAD History of hyperlipidemia Plan Admit to tele Antiemetics Pain management Aspirin + statin ACS workup Trend troponins PT/PTT Mag level Chest x-ray noted Duo nebs Hemoglobin A1c ISS and Accu-Cheks UA UDS NPO until Cardiology sees Home medications reconciled DVT prophylaxis- Lovenox PUD prophylaxis-PPIs Discussed plan of care with patient and nurse Cards consult -Dr. Queen Counseled patient on continuance of cessation of tobacco use [id number] Behavior change smoking greater than 10 minutes about use of other options also gave option of nicotine patch [id number] Preventive counseling healthy eating habits, physical activity, and regular checkups Plan discussed with: Patient Date of Service: Jun 02, 2025 Billing Provider: SHABANA CASANOVA Common Visit Codes: 82579-[id number] INP/OBS CARE (HIGH) Secondary Visit Codes: [id number] COUNSELING IND, 57864-TFRFM CHNG SMOKING >10MIN SHABANA CASANOVA Jun 02, 2025 07:45
[2025-06-02] MEDS ORDERED: PATIENTS OWN MEDICATION (Metoprolol Succinate (Toprol Xl) 1 TAB) PO SCH (10:00)
[2025-06-02] MEDS: ENOXAPARIN SOD 40 MG/0.4 ML SYRINGE SC SCH (10:00)
[2025-06-02 10:58] LABS: Urine Protein, UAD Negative (Negative)
[2025-06-02 11:02] LABS: Amphetamine Screen, Urine Neg (NEGATIVE); Barbiturate Scree,Urine Neg (NEGATIVE); Benzodiazephine Screen, Urine Neg (NEGATIVE); Cocaine Screen, Urine Neg (NEGATIVE); Opiate Scree,Urine Neg (NEGATIVE)
[2025-06-02 11:03] LABS: Cannabinoid Screen, Urine Neg (NEGATIVE); Phencyclidine Screen, Urine Neg (NEGATIVE)
--- NOTE | 2025-06-02 11:22 | DVHPN2 ---
Progress Note Date Seen: Jun 02, 2025 Medical Necessity Reason Pt with a Central, PICC or Fol: No Subjective Patient reports: No new complaints Review of Systems: HEENT:Normal, CVS:Normal, RESPIRATORY:Normal, GI:Normal, :Normal, MSK:Normal, NEURO:Normal Objective vital signs Vital Sign Date Time Temp Pulse Resp B/P (MAP) Pulse Ox O2 Delivery O2 Flow Rate FiO2 06/02/25 08:35 98.0 94 14 152/76 99 0.0 21 98.0 06/02/25 07:54 Room Air* medications Current Medications Medications Dose Ordered Sig/Mackenzie Route Start Time Stop Time Status Last Admin Dose Admin Aspirin 81 mg DAILY PO 06/02/25 10:00 UNV Atorvastatin Calcium 40 mg HS PO 06/02/25 22:00 UNV Morphine Sulfate 2 mg Q30MP PRN IV 06/02/25 07:45 UNV Acetaminophen 650 mg Q6HP PRN PO 06/02/25 07:45 UNV Nitroglycerin 0.4 mg Q5MINP PRN SL 06/02/25 07:45 UNV Ondansetron HCl 4 mg Q4HP PRN IV 06/02/25 07:45 UNV Nitroglycerin 0.4 mg Q5MINP PRN SL 06/02/25 07:45 UNV Morphine Sulfate 2 mg Q30M PRN IV 06/02/25 07:45 UNV Pantoprazole Sodium 40 mg DAILY IV 06/02/25 10:00 UNV Albuterol 2.5 mg Q4HPRN PRN NEB 06/02/25 07:45 UNV Ipratropium Blair 0.5 mg Q4HPRN PRN NEB 06/02/25 07:45 UNV Enoxaparin Sodium 40 mg DAILY SC 06/02/25 10:00 UNV Lisinopril 20 mg DAILY PO 06/02/25 10:00 UNV Oxybutynin Chloride 5 mg DAILY PO 06/02/25 10:00 UNV Patient Own Medication 4 mg HS PO 06/02/25 22:00 UNV Patient Own Medication 325 mg BIDWM PRN PO 06/02/25 07:45 UNV Patient Own Medication 1 tab DAILY PO 06/02/25 10:00 UNV Diagnostic Test (Pha) 1 strip ACHS 06/02/25 11:30 UNV Insulin Human Regular ACHS SC 06/02/25 11:30 UNV Dextrose 50 ml UD PRN IV 06/02/25 07:45 UNV Examination: GENERAL:Normal, HEENT:Normal, NECK:Normal, LUNGS:Normal, CVS:Normal, ABDOMEN:Normal, MSK:Normal, SKIN:Normal, NEURO:Normal, :Normal laboratory and microbiology Laboratory Tests 06/02/25 02:40 Test 06/02/25 02:40 Range/Units Serum Glucose 130 H 74-106 mg/dL Problem List/Assessment/Plan Problem List/Assessment/Plan #1 acute mi: dw dr Queen for c angio #2 cad s/p cabg #3 s/p pacer last month #4 dm: ssi #5 htn #6 asthma #[address]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
--- NOTE | 2025-06-02 12:07 | DVHINCON2 ---
Date Seen: Jun 02, 2025 Referring Physician BRUCE Watkins Reason for Consultation Chest pain, NSTEMI History of Present Illness This is a pleasant [place]ese-speaking 84-year-old male patient who presents to the emergency room with chief complaint of chest pain for three weeks. The patient reports he has been experiencing intermittent chest pain for approximately three weeks. He describes the chest pain as provoked by exertion, pressure-like in nature, substernal with radiation to his neck. Associated symptoms include shortness of breath. Initial twelve electrocardiogram reveals paced rhythm with left bundle branch block and diffuse ST segment changes. Initial troponin level of 18ng/L with up trend and current peak level of 543ng/L. Significant past medical history includes severe coronary artery disease status post CABG in 2003, congestive heart failure, myocardial infarction, hypertension, dyslipidemia, and permanent pacemaker implantation (Barros). The patient follows up with in the outpatient setting and was recently seen by electrop hysiologist for permanent pacemaker insertion. Past Medical History Past medical history reviewed. No other significant than mentioned above. Past Surgical History CABG in 2003 Permanent pacemaker implantation on April 16, 2025 Family History: Patient reports no known family medical history. Family History Family history reviewed. Social History Denies the use of tobacco, alcohol or illicit drugs. Allergies: Coded Allergies: NO KNOWN ALLERGIES (Unverified , 05/29/21) Home Meds Active Scripts Lisinopril (Lisinopril) 20 Mg Tab, 1 TAB PO DAILY, #30 TAB 5 Refills Prov:MARIE JULES MD 06/06/23 Metoprolol Succinate (Toprol Xl) 25 Mg Tab, 1 TAB PO DAILY, #30 TAB 5 Refills Prov:MARIE JULES MD 06/06/23 Reported Medications Isosorbide Mononitrate (Isosorbide Mononitrate Er) 30 Mg Tab, 1 TAB PO QAM 06/02/25 Ferrous Sulfate (Ferrous Sulfate) 325 Mg Tab, 325 MG PO BIDWM PRN for iron defin for 30 Days, MG 06/06/23 Calcium Carbonate (Tums) 500 Mg Chw, 500 MG PO PRN for FOR STOMACH DISTRESS, TAB.CHEW 06/06/23 Nitroglycerin (NTROSTAT SUBLINGUAL) 0.4 Mg Sl, 0.4 MG SL PRN, TAB *MAY REPEAT EVERY 5 MINUTES X 3 TOTAL IF NO RELIEF, INITIATE ANALGESIC THERAPY. NOTIFY PHYSICIAN *Do not crush. 06/06/23 Glipizide (Glipizide Er) 2.5 Mg Tab, 1 TAB PO DAILY 06/05/23 Oxybutynin Chloride (Oxybutynin Chloride) 5 Mg Tab, 1 TAB PO DAILY 06/05/23 Omeprazole (Omeprazole Dr) 20 Mg Cap, 1 CAP PO DAILY 06/05/23 Fluticasone Propionate (Nasal) (Fluticasone Propionate) 50 Mcg/Act Spr, 1 SPRAY JULIA DAILY 06/05/23 Doxazosin Mesylate (Doxazosin Mesylate) 4 Mg Tab, 4 MG PO HS for 30 Days, MG 05/30/21 Aspirin (Aspir-Low) 81 Mg Tab, 81 MG PO DAILY for 30 Days, MG 05/30/21 Atorvastatin Calcium (Lipitor) 20 Mg Tab, 1 TAB PO DAILY, #90 TAB 1 Refill 05/30/21 Home Meds Home medications reviewed. Current Medications Current Medications Medications (Trade) Dose Ordered Sig/Mackenzie Route PRN Reason Start Time Stop Time Status Last Admin Aspirin 81 mg DAILY PO 06/02/25 10:00 Atorvastatin Calcium (Lipitor) 40 mg HS PO 06/02/25 22:00 Morphine Sulfate 2 mg Q30MP PRN IV FOR CHEST PAIN 06/02/25 07:45 Acetaminophen (Tylenol Tablet) 650 mg Q6HP PRN PO MILD PAIN (1-3 PAIN SCALE) 06/02/25 07:45 Nitroglycerin (Ntrostat Sublingual) 0.4 mg Q5MINP PRN SL FOR CHEST PAIN 06/02/25 07:45 Ondansetron HCl (Zofran) 4 mg Q4HP PRN IV NAUSEA / VOMITING 06/02/25 07:45 Nitroglycerin (Ntrostat Sublingual) 0.4 mg Q5MINP PRN SL FOR CHEST PAIN 06/02/25 07:45 06/02/25 11:37 DC Morphine Sulfate 2 mg Q30M PRN IV FOR CHEST PAIN 06/02/25 07:45 06/02/25 11:37 DC Pantoprazole Sodium (Protonix) 40 mg DAILY IV 06/02/25 10:00 Albuterol (Ventolin Medneb) 2.5 mg Q4HPRN PRN NEB SHORTNESS OF BREATH 06/02/25 07:45 06/02/25 11:35 DC Ipratropium [place] (Atrovent Medneb) 0.5 mg Q4HPRN PRN NEB SHORTNESS OF BREATH 06/02/25 07:45 Enoxaparin Sodium (Lovenox) 40 mg DAILY SC 06/02/25 10:00 Lisinopril (Zestril Tablet) 20 mg DAILY PO 06/02/25 10:00 Oxybutynin Chloride (Ditropan Tablet) 5 mg DAILY PO 06/02/25 10:00 Doxazosin Mesylate (Cardura Tablet) 4 mg HS PO 06/02/25 22:00 Patient Own Medication 325 mg BIDWM PRN PO iron defin 06/02/25 07:45 06/02/25 11:20 DC Patient Own Medication 1 tab DAILY PO 06/02/25 10:00 06/02/25 11:20 DC Diagnostic Test (Pha) (Accu-Chek Comfort Curve T) 1 strip ACHS 06/02/25 11:30 Insulin Human Regular (InsuLIN R) ACHS SC 06/02/25 11:30 Dextrose 50 ml UD PRN IV Blood Sugar LESS THAN 60 06/02/25 07:45 Metoprolol Succinate (Toprol Xl) 50 mg DAILY PO 06/03/25 10:00 Albuterol (Ventolin Medneb) 2.5 mg Q4HPRN PRN NEB SHORTNESS OF BREATH 06/02/25 11:15 Review of Systems Constitutional: No symptom reported Ears, Nose, & Throat: No symptom reported Eyes: No symptom reported Neurological: No symptoms reported Pulmonary/Respiratory: Shortness of breath Cardiovascular: Chest pain Gastrointestinal: No symptom reported Genitourinary: No symptom reported Musculoskeletal: No symptom reported Skin: No symptom reported Psychiatric: No symptom reported Endocrine: No symptom reported Hematologic/Lymphatic: No symptom reported Vital Signs Vital Signs Date Time Temp Pulse Resp B/P (MAP) Pulse Ox O2 Delivery O2 Flow Rate FiO2 06/02/25 08:35 98.0 94 14 152/76 99 0.0 21 98.0 06/02/25 07:54 Room Air* Physical Exam General Appearance: Cooperative. Well-developed. Well-nourished. No acute distress. Pulmonary/Respiratory: Clear, bilateral breaths sounds. Cardiovascular/Chest: Regular rate and rhythm. Peripheral Pulses: 2+ Radial (R). 2+ Radial (L). Abdominal Exam: Normal bowel sounds. Ankle Exam: Negative ankle edema Lower extremities: Negative lower extremity edema Neuro/Mental Status: A/OX4, coherent. Thoughts/Psych: Normal thought pattern. Appropriate mood and affect. Good judgment and insight. Appearance: No acute distress. Skin Exam: Normal inspection. Normal color. Warm and dry. Labs/Diagnostic Data Labs Test 06/02/25 10:18 06/02/25 07:44 06/02/25 02:40 Range/Units Urine Color Colorless Yellow Urine Clarity Clear Clear Urine pH 5.0 5.0-9.0 Urine Specific [place] 1.007 1.001-1.035 Urine Protein Negative Negative Urine Ketones Negative Negative Urine Blood Negative Negative /uL Urine Nitrite Negative Negative Urine Bilirubin Negative Negative Urine Urobilinogen Normal Negative mg/dL Urine Leukocyte Esterase Negative Negative /uL Urine RBC <1 0 - 3 /hpf Urine Microscopic WBC < 1 0-3 /HPF Urine Squamous Epithelial Cells None seen <5 /hpf Urine Bacteria None seen None Seen /hpf Urine Glucose Normal Normal mg/dL Urine Opiates Screen Neg NEGATIVE Urine Fentanyl Screen Neg NEGATIVE Urine Barbiturates Screen Neg NEGATIVE Urine Phencyclidine Screen Neg NEGATIVE Urine Amphetamines Screen Neg NEGATIVE Urine Benzodiazepines Screen Neg NEGATIVE Urine Cocaine Screen Neg NEGATIVE Urine Cannabinoids Screen Neg NEGATIVE Hemoglobin A1c 6.8 H <5.7 % A1C Troponin I High Sensitivity 543 *H </=54 ng/L Thyroid Stimulating Hormone (TSH) 3.08 0.55-4.78 uIU/mL Free Thyroxine (T4) Calculated 1.16 0.89-1.76 ng/dL White Blood Count 5.5 4.4-10.8 10^3/uL Red Blood Count 4.54 4.5-5.90 10^6/uL Hemoglobin 13.1 L 13.5-17.5 g/dL Hematocrit 37.6 L 41.0-53.0 % Mean Corpuscular Volume 83.0 80.0-100.0 fL Mean Corpuscular Hemoglobin 28.8 28.0-32.0 pg Mean Corpuscular Hemoglobin Concent 34.7 32.0-36.0 g/dL Red Cell Distribution Width 15.8 H 11.8-14.3 % Platelet Count 187 140-450 10^3/uL Mean Platelet Volume 7.1 6.9-10.8 fL Neutrophils (%) (Auto) 56.1 37.0-80.0 % Lymphocytes (%) (Auto) 34.1 10.0-50.0 % Monocytes (%) (Auto) 7.3 0.0-12.0 % Eosinophils (%) (Auto) 1.8 0.0-7.0 % Basophils (%) (Auto) 0.7 0.0-2.0 % Neutrophils # (Auto) 3.1 1.6-8.6 10 ^3/uL Lymphocytes # (Auto) 1.9 0.4-5.4 10 ^3/uL Monocytes # (Auto) 0.4 0-1.3 10 ^3/uL Eosinophils # (Auto) 0.1 0-0.8 10 ^3/uL Basophils # (Auto) 0 0-0.2 10 ^3/uL Nucleated Red Blood Cells 0.2 % Prothrombin Time 10.9 9.3-11.8 sec Prothrombin Time INR 1.03 0.9-1.15 Activated Partial Thromboplast Time 28.9 24.5-34.5 SEC Sodium Level 140 136-145 mmol/L Potassium Level 4.6 3.5-5.1 mmol/L Chloride Level 105 98-107 mmol/L Carbon Dioxide Level 23 20-31 mmol/L Anion Gap 12 5-15 Blood Urea Nitrogen 17 9-23 mg/dL Creatinine 1.08 0.700-1.30 mg/dL Glomerular Filtration Rate Calc 68 >90 mL/min BUN/Creatinine Ratio 15.7 10.0-20.0 Serum Glucose 130 H 74-106 mg/dL Calcium Level 9.2 8.7-10.4 mg/dL Magnesium Level 1.8 1.6-2.6 mg/dL Total Bilirubin 0.4 0.2-1.0 mg/dL Aspartate Amino Transferase (AST) 21 13-40 U/L Alanine Aminotransferase (ALT) 20 7-40 U/L Alkaline Phosphatase 103 46-116 U/L B-Type Natriuretic Peptide 193.82 0-100 pg/mL Total Protein 7.4 5.7-8.2 g/dL Albumin 4.4 3.2-4.8 g/dL Assessment NSTEMI, rule out progressive coronary artery disease Coronary artery disease status post CABG in 2003 Rule out structural heart disease Hypertension Dyslipidemia Presence of permanent pacemaker (Barros) Type 2 diabetes mellitus Plan/Recommendation We will continue with the following plan/recommendations (Dr. Recio): * Echocardiogram to evaluate cardiac function * Chest pain protocol * KEVIN score: 4 points * HEART score: 7 points (high score) * Single antiplatelet therapy and lipid-lowering agent * Blood pressure control * Close cardiac surveillance Case discussed with . Given the patient's clinical presentation, up- trending troponin level, and comorbidities, the patient may benefit from a coronary angiogram with left heart catheterization. The procedure was discussed with the patient in full detail including risks and benefits. Risks include but are not limited to bleeding, contrast-induced nephropathy, coronary dissection, stroke, and even . The patient understands and is agreeable to undergo the procedure. We will schedule the patient at soonest availability on 06/02/2025. Thank you for allowing us to care for this patient. Please call with any questions or concerns. Critical care time spent: 44 minutes This medical document was created using an electronic medical record system with voice recognition software and computerized dictation system. Although this document has been carefully reviewed, there might still be some phonetic and typographical errors. Occasional wrong-word or ``sound-alike substitutions may have occurred due to the inherent limitations of voice recognition software. These areas are purely typographical due to imperfections of the software programs and do not reflect any compromise in the patient's medical care. Please read the chart carefully and recognize, using context, where these substitutions have occurred. Plan discussed with: Patient NYHA Physical activity limitations: NA Date of Service: Jun 02, 2025 Billing Provider: SNOW ANTONIO Cardiology Common Codes: 89614-[id number] INP/OBS CARE (High) Cardiology Consultation Codes: 44969-[id number] CONSULT <45MIN SNOW ANTONIO Jun 02, 2025 12:07
[2025-06-02 13:25] LABS: Triglycerides 116 mg/dL (< 150)
[2025-06-02 13:27] LABS: Cholesterol 120 mg/dL (< 200)
[2025-06-02 13:28] LABS: HDL Cholesterol 37 mg/dL (40-59)
[2025-06-02] MEDS: InsuLIN REG 1unit/0.01ml Soln (100units/ml) SC SCH (17:00)
[2025-06-02] MEDS: PANTOPRAZOLE 40 MG/10 ML VIAL INJ IV SCH (17:21)
[2025-06-02] MEDS: METOPROLOL SUCCINATE XL 50 MG TAB PO ONE (17:21)
[2025-06-02] MEDS: LISINOPRIL 20 MG TAB PO SCH (17:22)
[2025-06-02] MEDS: OXYBUTYNIN CHL 5 MG TAB PO SCH (17:22)
[2025-06-02] MEDS: ACCU-CHEK COMFORT CURVE STRIP VI SCH (17:23)
[2025-06-02] MEDS: fentaNYL CITRATE 100 MCG/2 ML VL ONE (19:33)
[2025-06-02] MEDS: ANGIOMAX 250 MG VIAL IV ONE (19:33)
[2025-06-02] MEDS: VERAPAMIL 2.5MG/ML INJ 2ML VIAL IV ONE (19:33)
[2025-06-02] MEDS: MIDAZOLAM HCL 2MG/2ML 2ml VIAL (1mg/ml) ONE (19:33)
[2025-06-02] MEDS: HEPARIN SODIUM (PORCINE) 5000 UNITS/ML 1ML VIAL ONE (19:33)
[2025-06-02] MEDS: IODIXANOL 320MG/ML 100ML BTL IV ONE (19:34)
[2025-06-02] MEDS: SODIUM CHL 0.9% 50 ML ONE (19:34)
[2025-06-02] MEDS: LIDOCAINE 2%HCL (LOCAL ANESTH.) INJ 20ML MDV ONE (19:34)
[2025-06-02] MEDS: HEPARIN 1,000 UNITS/ml 1ML VIAL ONE (19:55)
[2025-06-02] MEDS: CLOPIDOGREL BISULFATE 75 MG TAB ONE (20:47)
--- NOTE | 2025-06-02 21:03 | DVHOP2 ---
Operative Report - 2 Report Details Date: 06/02/25 Preop Diagnosis: CAD Postop Diagnosis: CAD Surgeon: Samia Recio MD Anesthesiologist: Conscious sedation Anesthesia: Mac, Local Consent: The patient was informed of the risks and benefits of the procedure. These include but are not limited to complications of anesthesia, postoperative infection, incomplete relief of symptoms, recurrence of symptoms, damage to blood vessels, nerves and tendons, deep venous thrombosis, pulmonary embolism and possible need for repeat surgery in the future. Complications: No complications Findings: Significant CAD Indications for Surgery: Chest pain. Abnormal troponins. Acute coronary syndrome. Name of Procedure Performed Coronary angiography. Visualization of saphenous venous grafts and left internal mammary artery. Left heart catheterization was not performed. PTCA and stenting of left main circumflex marginal Procedure Details Procedure Details: Prior local anesthesia with 2% lidocaine to the right groin and full informed consent obtained the patient was prepped and draped in usual fashion followed by placement of a six Persian sheath into the femoral RV. We then placed Gladys catheters into the right left coronary ostia. Ventriculography was not performed. Visualization of saphenous venous grafts accordingly Annalisa ellis and a left internal mammary artery to the LAD. PTCA and stenting as will be delineated. Aortic blood pressure was 110/70. Coronary anatomy: The RCA has several occlusions at its mid and distal segments with reconstitution of flow. It occludes completely at its distal portion prior to the origin of the PDA. The left main is a medium caliber vessel. Left anterior descending is occluded proximally. The left main gives rise to a medium caliber marginal. There was a 99% stenosis of the proximal circumflex. Some flow was noted in the proximal circumflex from the marginal branch however there is a 99% stenosis of the circumflex prior to the bifurcation of the marginal and circumflex union. The internal mammary artery to the left anterior descending coronary artery is patent. There was good retrograde flow. Lad itself is free of significant disease. The saphenous grafts to the distal posterolateral branches patent. The saphenous graft to the marginal branches patent. Retrograde filling of the proximal marginal. Ventriculography was not performed. Angioplasty was performed with the three five EBU guide. We placed a whisper wire into the circumflex marginal. We pre-dilated with a 2-0 balloon and then with a two five angio score. Placed a 2.25 x 22 mm stent into left main/margin al branch. We dilated to 10 atmospheres and retracted the balloon dilated to 14 atmospheres where the left main segment was much larger. There was notably improved flow marginal. Impression: Significant three-vessel coronary artery disease as mentioned. Successful angioplasty of the marginal branch. Recommendations: Continue medical therapy. Risk factor modification continue. Condition Good Disposition Still a Patient Date of Service: Jun 02, 2025 Billing Provider: SAMIA RECIO Sr., MD Cardiology Common Codes: [id number] INP/OBS CARE (High) Cardiology Procedure Codes: 95261-ZBD NONCORN ART BYPASS GTF, 71441 -PTCA W/STENT PLACEMENT, 67769-CFOP ADD CORONARY BRANCH, 14880-XPKQ ADD COR ART/BRNCH/GRFT SAMIA RECIO Sr., MD Jun 02, 2025 21:03
[2025-06-02] MEDS: ATORVASTATIN 20 MG TAB PO SCH (23:00)
[2025-06-02] MEDS: DOXAZOSIN MESYL 2 MG TAB PO SCH (23:00)
[2025-06-03] VITALS (10 sets, daily range): BP systolic 112–167; BP diastolic 49–98; PULSE 60–77; RESP 17–20; TEMP 97.6–98.7; O2SAT 95–99
[2025-06-03 06:17] LABS: Hematocrit 39.2 % (41.0-53.0); Hemoglobin 13.5 g/dL (13.5-17.5); Mean Corpuscular Hemoglobin 28.5 pg (28.0-32.0); Mean Corpuscular Volume 82.7 fL (80.0-100.0); Nucleated Red Blood Cells % 0.0 %
[2025-06-03 06:25] LABS: Anion Gap 10 (5-15); Carbon Dioxide 26 mmol/L (20-31); Chloride 107 mmol/L (98-107); Potassium 4.4 mmol/L (3.5-5.1); Sodium 143 mmol/L (136-145)
[2025-06-03 06:26] LABS: Calcium 9.4 mg/dL (8.7-10.4)
[2025-06-03 06:30] LABS: Glucose 116 mg/dL (74-106)
[2025-06-03 06:31] LABS: BUN/Creatinine Ratio 13.7 (10.0-20.0); Blood Urea Nitrogen 18 mg/dL (9-23); Magnesium 1.9 mg/dL (1.6-2.6); Triglycerides 94 mg/dL (< 150)
[2025-06-03 06:33] LABS: Cholesterol 123 mg/dL (< 200)
[2025-06-03 06:39] LABS: HDL Cholesterol 36 mg/dL (40-59)
[2025-06-03] MEDS: CLOPIDOGREL BISULFATE 75 MG TAB PO SCH (09:54)
[2025-06-03] MEDS: METOPROLOL SUCCINATE XL 50 MG TAB PO SCH (09:56)
--- NOTE | 2025-06-03 11:19 | DVHPN2 ---
Consult Progress Note Subjective Patient reports: Feels better Other Systems: Patient is in a paced rhythm on manager cardiac Denies any cardiac symptoms at time of assessment Objective vital signs Vital Sign Date Time Temp Pulse Resp B/P (MAP) Pulse Ox O2 Delivery O2 Flow Rate FiO2 06/03/25 09:56 64 123/49 06/03/25 09:00 98.3 18 99 98.3 06/03/25 05:55 Room Air 06/03/25 05:55 0 21 Total Intake and Output 06/02/25 06/02/25 06/03/25 15:00 23:00 07:00 Intake Total 250 ml Balance 250 ml medications Current Medications Medications Dose Ordered Sig/Mackenzie Route Start Time Stop Time Status Last Admin Dose Admin Aspirin 81 mg DAILY PO 06/02/25 10:00 06/03/25 09:53 81 MG Atorvastatin Calcium 40 mg HS PO 06/02/25 22:00 06/02/25 23:00 40 MG Morphine Sulfate 2 mg Q30MP PRN IV 06/02/25 07:45 Acetaminophen 650 mg Q6HP PRN PO 06/02/25 07:45 Nitroglycerin 0.4 mg Q5MINP PRN SL 06/02/25 07:45 Ondansetron HCl 4 mg Q4HP PRN IV 06/02/25 07:45 Pantoprazole Sodium 40 mg DAILY IV 06/02/25 10:00 06/03/25 09:53 40 MG Ipratropium [place] 0.5 mg Q4HPRN PRN NEB 06/02/25 07:45 Enoxaparin Sodium 40 mg DAILY SC 06/02/25 10:00 06/03/25 09:53 40 MG Lisinopril 20 mg DAILY PO 06/02/25 10:00 06/03/25 09:54 20 MG Oxybutynin Chloride 5 mg DAILY PO 06/02/25 10:00 06/03/25 09:53 5 MG Doxazosin Mesylate 4 mg HS PO 06/02/25 22:00 06/02/25 23:00 4 MG Diagnostic Test (Pha) 1 strip ACHS 06/02/25 11:30 06/03/25 06:53 1 STRIP Insulin Human Regular ACHS SC 06/02/25 11:30 Dextrose 50 ml UD PRN IV 06/02/25 07:45 Metoprolol Succinate 50 mg DAILY PO 06/03/25 10:00 06/03/25 09:56 50 MG Albuterol 2.5 mg Q4HPRN PRN NEB 06/02/25 11:15 Clopidogrel Bisulfate 75 mg DAILY PO 06/03/25 10:00 06/03/25 09:54 75 MG Examination: GENERAL:Normal, LUNGS:Normal, CVS:Normal, NEURO:Normal laboratory and microbiology Laboratory Tests 06/03/25 05:06 Test 06/03/25 05:06 Range/Units Serum Glucose 116 H 74-106 mg/dL Problem List/Assessment/Plan Problem List/Assessment/Plan NSTEMI status post PTCA and stenting marginal branch Coronary artery disease status post CABG in 2003 Rule out structural heart disease Hypertension Dyslipidemia Presence of permanent pacemaker (Barros) Type 2 diabetes mellitus Obesity Plan/Recommendations (Dr. Recio): The patient underwent a coronary angiogram with left heart catheterization in which PTCA and stenting of the left main circumflex marginal was performed. Continue with dual antiplatelet therapy and lipid-lowering agent. The patient was educated on dietary and lifestyle changes including Mediterranean diet. Ventriculography was not performed. Pending transthoracic echocardiogram to evaluate cardiac function. Continue with close cardiac surveillance. This medical document was created using an electronic medical record system with voice recognition software and computerized dictation system. Although this document has been carefully reviewed, there might still be some phonetic and typographical errors. Occasional wrong-word or ``sound-alike substitutions may have occurred due to the inherent limitations of voice recognition software. These areas are purely typographical due to imperfections of the software programs and do not reflect any compromise in the patient's medical care. Please read the chart carefully and recognize, using context, where these substitutions have occurred. Plan discussed with: Patient Date of Service: Jun 03, 2025 Billing Provider: SNOW ANTONIO Common Visit Codes: [id number] INP/OBS CARE(HIGH) SNOW ANTONIO Jun 03, 2025 11:19
--- NOTE | 2025-06-03 14:26 | DVHPN2 ---
Progress Note Date Seen: Jun 03, 2025 Medical Necessity Reason Pt with a Central, PICC or Fol: No Subjective Patient reports: No new complaints Review of Systems: HEENT:Normal, CVS:Normal, RESPIRATORY:Normal, GI:Normal, :Normal, MSK:Normal, NEURO:Normal Objective vital signs Vital Sign Date Time Temp Pulse Resp B/P (MAP) Pulse Ox O2 Delivery O2 Flow Rate FiO2 06/03/25 13:00 97.9 77 19 167/97 (120) 98 97.9 06/03/25 05:55 Room Air 06/03/25 05:55 0 21 Total Intake and Output 06/02/25 06/02/25 06/03/25 14:59 22:59 06:59 Intake Total 250 ml Balance 250 ml medications Current Medications Medications Dose Ordered Sig/Mackenzie Route Start Time Stop Time Status Last Admin Dose Admin Aspirin 81 mg DAILY PO 06/02/25 10:00 06/03/25 09:53 81 MG Atorvastatin Calcium 40 mg HS PO 06/02/25 22:00 06/02/25 23:00 40 MG Morphine Sulfate 2 mg Q30MP PRN IV 06/02/25 07:45 Acetaminophen 650 mg Q6HP PRN PO 06/02/25 07:45 Nitroglycerin 0.4 mg Q5MINP PRN SL 06/02/25 07:45 Ondansetron HCl 4 mg Q4HP PRN IV 06/02/25 07:45 Pantoprazole Sodium 40 mg DAILY IV 06/02/25 10:00 06/03/25 09:53 40 MG Ipratropium [place] 0.5 mg Q4HPRN PRN NEB 06/02/25 07:45 Enoxaparin Sodium 40 mg DAILY SC 06/02/25 10:00 06/03/25 09:53 40 MG Lisinopril 20 mg DAILY PO 06/02/25 10:00 06/03/25 09:54 20 MG Oxybutynin Chloride 5 mg DAILY PO 06/02/25 10:00 06/03/25 09:53 5 MG Doxazosin Mesylate 4 mg HS PO 06/02/25 22:00 06/02/25 23:00 4 MG Diagnostic Test (Pha) 1 strip ACHS 06/02/25 11:30 06/03/25 06:53 1 STRIP Insulin Human Regular ACHS SC 06/02/25 11:30 Dextrose 50 ml UD PRN IV 06/02/25 07:45 Metoprolol Succinate 50 mg DAILY PO 06/03/25 10:00 06/03/25 09:56 50 MG Albuterol 2.5 mg Q4HPRN PRN NEB 06/02/25 11:15 Clopidogrel Bisulfate 75 mg DAILY PO 06/03/25 10:00 06/03/25 09:54 75 MG Examination: GENERAL:Normal, HEENT:Normal, NECK:Normal, LUNGS:Normal, CVS:Normal, ABDOMEN:Normal, MSK:Normal, SKIN:Normal, NEURO:Normal, :Normal laboratory and microbiology Laboratory Tests 06/03/25 05:06 Test 06/03/25 05:06 Range/Units Serum Glucose 116 H 74-106 mg/dL Problem List/Assessment/Plan Problem List/Assessment/Plan #1 acute mi: S/P angio- stent #2 cad s/p cabg #3 s/p pacer last month #4 dm: ssi #5 htn #6 asthma #7 hyperlipidemia #8 acute renal failure ?vasomotor nephropathy: ivf, repeat bmp dw dr Jacobo- 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
--- NOTE | 2025-06-03 15:34 | DVHSR ---
APPROVED REPORT EXAM: Two-dimensional and M-mode echocardiogram with Doppler and color Doppler. Blood Pressure: 112/63 mmHg INDICATION Chest Pain RISK FACTORS Height: 5'1", Weight: 160 DIMENSIONS LVDd5.9 (3.8-5.7cm)LA (2D)4.2 (1.9-4.0cm)Aortic Root3.1 (2.0-3.7cm) LVDs5.0 (2.5-4.0cm)LA (MM) (1.9-4.0cm)Aortic Cusp Exc1.6 (1.5-2.0cm) EF (%) 30.0 (55-70%)Rt. Atrium4.0 (1.9-4.0cm)Asc. Aorta cm IVSd1.0 (0.7-1.1cm)RV (D) (1.8-2.4cm) Mitral Valve MitralMitral Stenosis E wave0.93m/sMV Mean GR.mmHg A wave1.10m/sMV Peak GR.mmHg E/A ratio0.82D MVAcm2 DECEL [id number] 1/2 Tim[place] Aortic Valve Aortic ValveAortic Stenosis V10.93m/[place] Mean GR.4mmHg V21.24m/[place] Peak GR.6mmHg LVOT Diameter2.2 (1.8-2.4cm)Doppler AVA2.85cm2 Pulmonic Valve V21.20m/s Tricuspid Valve TR Velocity2.89m/s [id number] Other Information Quality : Technically LimitedRhythm : Technically limited study due to body habitus. Conclusion lvef 20-25% severe dilated LV apex is hypokinetic, postop septum moderate mitral regurg
[2025-06-03] MEDS: SODIUM CHLORIDE 0.9% 1,000 ML IV SCH (16:20)
--- NOTE | 2025-06-03 22:15 | ECG ---
[facility] Test Date: 2025-06-02 Test Time: 06:48:22 Pat Name: ADELA DIAS Department: [facility] ED Patient ID: [facility]-[id number] Room: 0274T Gender: M [employer]: YURI : 1940 Requested By: SHABANA CASANOVA Order Number: [id number] Reading MD: Yamil Recio Measurements Intervals [place] Rate: 79 P: 84 FL: 250 QRS: -54 QRSD: 191 T: 125 QT: 444 QTc: 510 Interpretive Statements Sinus rhythm Multiple ventricular premature complexes Prolonged FL interval Left bundle branch block Electronically Signed On 06-03-2025 22:15:14 PDT by Yamil Recio Please click the below link to view image of tracing.
[2025-06-04] VITALS (7 sets, daily range): BP systolic 123–140; BP diastolic 59–82; PULSE 61–86; RESP 16–18; TEMP 97.7–98.2; O2SAT 96–99
[2025-06-04 07:04] LABS: Anion Gap 10 (5-15); Calcium 9.1 mg/dL (8.7-10.4); Carbon Dioxide 23 mmol/L (20-31); Chloride 106 mmol/L (98-107); Potassium 4.0 mmol/L (3.5-5.1); Sodium 139 mmol/L (136-145)
[2025-06-04 07:10] LABS: BUN/Creatinine Ratio 13.8 (10.0-20.0); Blood Urea Nitrogen 17 mg/dL (9-23); Glucose 96 mg/dL (74-106)
--- NOTE | 2025-06-04 11:35 | DVHPN2 ---
Consult Progress Note Subjective Patient reports: Feels better Other Systems: Patient is in V paced rhythm on residential monitor Objective vital signs Vital Sign Date Time Temp Pulse Resp B/P (MAP) Pulse Ox O2 Delivery O2 Flow Rate FiO2 06/04/25 09:41 83 140/70 06/04/25 09:00 98.0 16 98 98.0 06/04/25 08:00 Room Air* 0 21 Total Intake and Output 06/03/25 06/03/25 06/04/25 15:00 23:00 07:00 Intake Total 1000 ml 150 ml Balance 1000 ml 150 ml medications Current Medications Medications Dose Ordered Sig/Mackenzie Route Start Time Stop Time Status Last Admin Dose Admin Aspirin 81 mg DAILY PO 06/02/25 10:00 06/04/25 09:40 81 MG Atorvastatin Calcium 40 mg HS PO 06/02/25 22:00 06/03/25 21:38 40 MG Morphine Sulfate 2 mg Q30MP PRN IV 06/02/25 07:45 Acetaminophen 650 mg Q6HP PRN PO 06/02/25 07:45 Nitroglycerin 0.4 mg Q5MINP PRN SL 06/02/25 07:45 Ondansetron HCl 4 mg Q4HP PRN IV 06/02/25 07:45 Pantoprazole Sodium 40 mg DAILY IV 06/02/25 10:00 06/04/25 09:40 40 MG Ipratropium [place] 0.5 mg Q4HPRN PRN NEB 06/02/25 07:45 Enoxaparin Sodium 40 mg DAILY SC 06/02/25 10:00 06/04/25 09:40 40 MG Lisinopril 20 mg DAILY PO 06/02/25 10:00 06/04/25 09:41 20 MG Oxybutynin Chloride 5 mg DAILY PO 06/02/25 10:00 06/04/25 09:40 5 MG Doxazosin Mesylate 4 mg HS PO 06/02/25 22:00 06/03/25 21:39 4 MG Diagnostic Test (Pha) 1 strip ACHS 06/02/25 11:30 06/04/25 06:39 1 STRIP Insulin Human Regular ACHS SC 06/02/25 11:30 Dextrose 50 ml UD PRN IV 06/02/25 07:45 Metoprolol Succinate 50 mg DAILY PO 06/03/25 10:00 06/04/25 09:41 50 MG Albuterol 2.5 mg Q4HPRN PRN NEB 06/02/25 11:15 Clopidogrel Bisulfate 75 mg DAILY PO 06/03/25 10:00 06/04/25 09:40 75 MG Sodium Chloride 1,000 ml @ 60 mls/hr [id number] IV 06/03/25 14:30 06/03/25 16:20 60 MLS/HR Examination: GENERAL:Normal, LUNGS:Normal, CVS:Normal, NEURO:Normal laboratory and microbiology Laboratory Tests 06/04/25 05:02 06/03/25 05:06 Test 06/04/25 05:02 Range/Units Serum Glucose 96 74-106 mg/dL Problem List/Assessment/Plan Problem List/Assessment/Plan NSTEMI status post PTCA and stenting marginal branch Coronary artery disease status post CABG in 2003 Chronic HFrEF, NYHA class II Hypertension Dyslipidemia Presence of permanent pacemaker (Barros) Type 2 diabetes mellitus Obesity Plan/Recommendations (Dr. Recio): The patient underwent a coronary angiogram with left heart catheterization in which PTCA and stenting of the left main circumflex marginal was performed. Continue with dual antiplatelet therapy and lipid-lowering agent. A transthoracic echocardiogram reveals an EF of 20-25% with hypokinetic apex. We will initiate guideline directed medical therapy for CHF as tolerated. The patient was educated on dietary and lifestyle changes including Mediterranean diet. Patient states he has an upcoming appointment with his primary cutting table operator first in the outpatient setting. There is no further inpatient cardiac workup indicated at this time. Thank you for allowing us to care for this patient. Please call with any questions or concerns. This medical document was created using an electronic medical record system with voice recognition software and computerized dictation system. Although this document has been carefully reviewed, there might still be some phonetic and typographical errors. Occasional wrong-word or ``sound-alike substitutions may have occurred due to the inherent limitations of voice recognition software. These areas are purely typographical due to imperfections of the software programs and do not reflect any compromise in the patient's medical care. Please read the chart carefully and recognize, using context, where these substitutions have occurred. Plan discussed with: Patient Date of Service: Jun 04, 2025 Billing Provider: SNOW ANTONIO Common Visit Codes: [id number] INP/OBS CARE(HIGH) SNOW ANTONIO MELTING OPERATOR Jun 04, 2025 11:35
[2025-06-04] MEDS ORDERED: METO-6 PO (14:19)
[2025-06-04] MEDS ORDERED: CLOP75TA28 PO (14:19)
--- NOTE | 2025-06-04 14:26 | DVHDS2 ---
Discharge Summary Date of Admission Jun 02, 2025 at 07:38 Date of Discharge: Jun 04, 2025 Admitting Diagnosis NSTEMI Labs/Diagnostic Data: Laboratory Results Test 06/04/25 11:49 06/04/25 05:02 06/03/25 05:06 06/02/25 10:18 POC Glucose 141 mg/dl (70-106) Sodium Level 139 mmol/L (136-145) Potassium Level 4.0 mmol/L (3.5-5.1) Chloride Level 106 mmol/L (98-107) Carbon Dioxide Level 23 mmol/L (20-31) Anion Gap 10 (5-15) Blood Urea Nitrogen 17 mg/dL (9-23) Creatinine 1.23 mg/dL (0.700-1.30) Glomerular Filtration Rate Calc 58 mL/min (>90) BUN/Creatinine Ratio 13.8 (10.0-20.0) Serum Glucose 96 mg/dL (74-106) Calcium Level 9.1 mg/dL (8.7-10.4) White Blood Count 5.5 10^3/uL (4.4-10.8) Red Blood Count 4.74 10^6/uL (4.5-5.90) Hemoglobin 13.5 g/dL (13.5-17.5) Hematocrit 39.2 % (41.0-53.0) Mean Corpuscular Volume 82.7 fL (80.0-100.0) Mean Corpuscular Hemoglobin 28.5 pg (28.0-32.0) Mean Corpuscular Hemoglobin Concent 34.5 g/dL (32.0-36.0) Red Cell Distribution Width 15.8 % (11.8-14.3) Platelet Count 186 10^3/uL (140-450) Mean Platelet Volume 7.5 fL (6.9-10.8) Neutrophils (%) (Auto) 63.5 % (37.0-80.0) Lymphocytes (%) (Auto) 24.1 % (10.0-50.0) Monocytes (%) (Auto) 9.5 % (0.0-12.0) Eosinophils (%) (Auto) 2.3 % (0.0-7.0) Basophils (%) (Auto) 0.6 % (0.0-2.0) Neutrophils # (Auto) 3.5 10 ^3/uL (1.6-8.6) Lymphocytes # (Auto) 1.3 10 ^3/uL (0.4-5.4) Monocytes # (Auto) 0.5 10 ^3/uL (0-1.3) Eosinophils # (Auto) 0.1 10 ^3/uL (0-0.8) Basophils # (Auto) 0 10 ^3/uL (0-0.2) Nucleated Red Blood Cells 0.0 % Magnesium Level 1.9 mg/dL (1.6-2.6) Troponin I High Sensitivity 2144 ng/L (</=54) Triglycerides Level 94 mg/dL (< 150) Cholesterol Level 123 mg/dL (< 200) LDL Cholesterol 69 mg/dL (< 100) HDL Cholesterol 36 mg/dL (40-59) Urine Color Colorless (Yellow) Urine Clarity Clear (Clear) Urine pH 5.0 (5.0-9.0) Urine Specific [place] 1.007 (1.001-1.035) Urine Protein Negative (Negative) Urine Ketones Negative (Negative) Urine Blood Negative /uL (Negative) Urine Nitrite Negative (Negative) Urine Bilirubin Negative (Negative) Urine Urobilinogen Normal mg/dL (Negative) Urine Leukocyte Esterase Negative /uL (Negative) Urine RBC <1 /hpf (0 - 3) Urine Microscopic WBC < 1 /HPF (0-3) Urine Squamous Epithelial Cells None seen /hpf (<5) Urine Bacteria None seen /hpf (None Seen) Urine Glucose Normal mg/dL (Normal) Urine Opiates Screen Neg (NEGATIVE) Urine Fentanyl Screen Neg (NEGATIVE) Urine Barbiturates Screen Neg (NEGATIVE) Urine Phencyclidine Screen Neg (NEGATIVE) Urine Amphetamines Screen Neg (NEGATIVE) Urine Benzodiazepines Screen Neg (NEGATIVE) Urine Cocaine Screen Neg (NEGATIVE) Urine Cannabinoids Screen Neg (NEGATIVE) Test 06/02/25 07:44 06/02/25 02:40 Hemoglobin A1c 6.8 % A1C (<5.7) Thyroid Stimulating Hormone (TSH) 3.08 uIU/mL (0.55-4.78) Free Thyroxine (T4) Calculated 1.16 ng/dL (0.89-1.76) Prothrombin Time 10.9 sec (9.3-11.8) Prothrombin Time INR 1.03 (0.9-1.15) Activated Partial Thromboplast Time 28.9 SEC (24.5-34.5) Total Bilirubin 0.4 mg/dL (0.2-1.0) Aspartate Amino Transferase (AST) 21 U/L (13-40) Alanine Aminotransferase (ALT) 20 U/L (7-40) Alkaline Phosphatase 103 U/L (46-116) B-Type Natriuretic Peptide 193.82 pg/mL (0-100) Total Protein 7.4 g/dL (5.7-8.2) Albumin 4.4 g/dL (3.2-4.8) Other Laboratory Tests 06/04/25 05:02 06/03/25 05:06 Brief Hx & Hospital Course: History of Present Illness David Trujillo is an 84-year-old male with past medical history of hypertension, diabetes, [place], CABG, pacemaker, tobacco use, urinary incontinence, cholecystectomy, seasonal allergies, gastritis, asthma, CAD, and hyperlipidemia who presents to the ED with chest pain that started 3 hours prior to arrival. Patient reports that the pain was 8/10 midsternal, dull pressure-like and constant radiating to both arms and neck. Patient reports that he self- medicated with aspirin nitroglycerin however chest pain was still present. Upon examination patient states that his pain is currently at 0. He does however state that if he does move or showers the pain is worse. He reports that lying still makes the pain better. Patient also reports that he had a pacemaker placed 6 weeks ago [facility] at [facility] by Dr. Queen. Course of hospitalization: Patient was seen by Cardiology, with elevated troponins increasing patient was taken to the cardiac catheterization lab. Patient was found to have culprit lesion in his obtuse marginal, for which patient had PTCA and stent placement. Postoperatively patient had mild bump in creatinine, for which he was kept in the hospital overnight for additional IV hydration. Medication reconciliation was performed. Patient is no longer taking Eliquis. He will continued on aspirin and Plavix. Patient is currently off beta-paulie therapy as an outpatient, but we will be restarted on Toprol-XL 50 mg p.o. daily. Patient is currently on lisinopril at home. Given the patient's increase in BUN and creatinine, spironolactone in GLP 1 we will be held at this time. These medications can be re-evaluated in one week after postop appointment with Dr. Recio, healthcare network consultant. He is also instructed to follow up with the discharge Clinic in one week's as he is unable to verbalize the name of his PCP. Patient was agreeable with discharge plan. All questions answered. Physical examination General: Alert and Oriented x3. No acute distress. Well-nourished. Eyes: EOMI. Anicteric. HENT: Moist mucous membranes. Lungs: Clear to auscultation bilaterally. No accessory muscle use. Cardiovascular: Regular rate and rhythm. No murmur. No JVD. Abdomen: Soft, non-tender and non-distended. No palpable masses. Extremities: No edema. Non-tender. Skin: No rashes or lesions. Warm. Neurologic: No focal neurological deficits. CN II-XII grossly intact, but not individually tested. Psychiatric: Cooperative. Appropriate mood and affect. Total time spent with patient discussing and formulating plan of care: 35 minutes. This medical document was created using an electronic medical record system with Re[employer]able dictation system. Although this document has been carefully reviewed, there may still be some phonetic and typographical errors. These areas are purely typographical due to imperfections of the software programs, and do not reflect any compromise in the patient's medical care. Condition at Discharge: Good Final Diagnosis/Problems List NSTEMI type 1 involving obtuse marginal branch #2 cad s/p cabg #3 s/p pacer last month #4 dm: ssi #5 htn #6 asthma #7 hyperlipidemia #8 acute renal failure ?vasomotor nephropathy Discharge Disposition: Home Discharge Instruct/Medications Diet: Cardiac 2g Na,low cholest Activity: See Comment Activity comment: Do not lift anything greater than 5 lb with right wrist Follow Up/Referral: Follow up with Dr. Recio in one week Follow up with discharge Clinic in one week Medications: Toprol-XL 50 mg p.o. daily Continue home dose of lisinopril Continue aspirin 81 mg p.o. daily Plavix 75 mg p.o. daily Continue all home medications. Patient was instructed to continue to hold Eliquis per his primary healthcare network consultant Scheduled Aspirin (Aspir-Low), 81 MG PO DAILY, (Reported) Atorvastatin Calcium (Lipitor), 1 TAB PO DAILY, (Reported) Clopidogrel Bisulfate (Plavix), 1 TAB PO DAILY Doxazosin Mesylate (Doxazosin Mesylate), 4 MG PO HS, (Reported) Fluticasone Propionate (Nasal) (Fluticasone Propionate), 1 SPRAY JULIA DAILY, (Reported) Glipizide (Glipizide Er), 1 TAB PO DAILY, (Reported) Isosorbide Mononitrate (Isosorbide Mononitrate Er), 1 TAB PO QAM, (Reported) Lisinopril (Lisinopril), 1 TAB PO DAILY Metoprolol Succinate (Toprol Xl), 1 TAB PO DAILY Metoprolol Succinate (Toprol Xl), 1 TAB PO DAILY Nitroglycerin (Ntrostat Sublingual), 0.4 MG SL PRN, (Reported) Omeprazole (Omeprazole Dr), 1 CAP PO DAILY, (Reported) Oxybutynin Chloride (Oxybutynin Chloride), 1 TAB PO DAILY, (Reported) Scheduled PRN Calcium Carbonate (Tums), 500 MG PO for FOR STOMACH DISTRESS, (Reported) Ferrous Sulfate (Ferrous Sulfate), 325 MG PO BIDWM PRN for iron defin, (Reported) 36 Discharge Statement: "Patient was advised to return to the ER or call 911 if any headaches, dizziness, shortness of breath, chest pain, abdominal pain, bleeding, fevers, or worsening of medical condition. Patient was counseled about treatment plan, medications, possible side effects, patientverbalized understanding. All questions were answered to the best of my ability. This discharge took greater then 30 minutes in planning, reviewing documentation, counseling the patient, and discussing with other team members." ASSESSMENT ASSESSMENT Assessment NSTEMI type 1 involving obtuse marginal branch Date of Service: Jun 04, 2025 Billing Provider: YOLANDA QUEVEDO NP Common Visit Codes: [id number]/[id number] DISCH DAY >30min YOLANDA QUEVEDO NP Jun 04, 2025 14:26
[2025-06-05] MEDS ORDERED: LOSARTAN POTASSIUM 25 MG TAB PO SCH (10:00)
[2025-06-05] MEDS ORDERED: SPIRONOLACTONE 25 MG TAB PO SCH (10:00)
[2025-06-05] MEDS ORDERED: EMPAGLIFLOZIN 10 MG TAB PO SCH (10:00)
== END 2025-06-04 17:00 | disposition home or self-care (01) | DRG 321 ==
LOC: EDBD 02:30 → ER 02:30 → OVERFLOW 07:38 → TELE-WESTW 22:07
PROVIDERS: ADMIT Nurse Practitioner Acute Care; ATTEND Nurse Practitioner Acute Care
PROC: 027034Z Dilation of Coronary Artery, One Artery with Drug-eluting Intraluminal Device, Percutaneous Approach (ICD-10-PCS; principal; 2025-06-02)
PROC: B211YZZ Fluoroscopy of Multiple Coronary Arteries using Other Contrast (ICD-10-PCS; 2025-06-02)
PROC: B218YZZ Fluoroscopy of Left Internal Mammary Bypass Graft using Other Contrast (ICD-10-PCS; 2025-06-02)
PROC: B213YZZ Fluoroscopy of Multiple Coronary Artery Bypass Grafts using Other Contrast (ICD-10-PCS; 2025-06-02)
DX: I21.4 Non-ST elevation (NSTEMI) myocardial infarction (principal); N17.0 Acute kidney failure with tubular necrosis; I50.22 Chronic systolic (congestive) heart failure; I25.10 Atherosclerotic heart disease of native coronary artery without angina pectoris; I11.0 Hypertensive heart disease with heart failure; E11.9 Type 2 diabetes mellitus without complications; I44.7 Left bundle-branch block, unspecified; J45.909 Unspecified asthma, uncomplicated; K29.70 Gastritis, unspecified, without bleeding; Z68.30 Body mass index [BMI] 30.0-30.9, adult; E66.9 Obesity, unspecified; E78.5 Hyperlipidemia, unspecified; I25.2 Old myocardial infarction; Z95.1 Presence of aortocoronary bypass graft; Z95.0 Presence of cardiac pacemaker; Z90.49 Acquired absence of other specified parts of digestive tract; Z87.891 Personal history of nicotine dependence; Z79.82 Long term (current) use of aspirin; Z79.02 Long term (current) use of antithrombotics/antiplatelets
CPT/HCPCS: 36415; 71045; 80048; 80053; 80061; 80307; 81001; 82962; 83036; 83735; 83880; 84439; 84443; 84484; 85025; 85610; 85730; 92941; 93005; 93306; 93454; 93455; 96374; 99152; 99291; C1887; G0378; J1815; J2250; J2470; Q9967